=== PATIENT | male | born 1965 | race African-American/Black ===

== ENCOUNTER 2018-09-20 12:41 | Emergency (ER) | payer OTHER ==
[2018-09-20 12:45] VITALS: TEMP 98.6; BMI 31.5
[2018-09-20] MEDS ORDERED: SODIUM CHLORIDE 0.9% 500 ML INFUS.BAG IV ONE (12:54)
[2018-09-20] MEDS ORDERED: SUCRALFATE 1 GM TABLET (FP) PO ONE (12:54)
[2018-09-20] MEDS ORDERED: MAG HYDROX/AL HYDROX/SIMETH 30 ML UNIT-DOSE CUP PO ONE (12:54)
[2018-09-20] MEDS ORDERED: FAMOTIDINE 20 MG/50 ML IVPB 20 MG/50 ML MG IVPB ONE ×2 (12:54→13:12)
--- NOTE | 2018-09-20 13:01 | PDOC ---
History of Present Illness - General Chief Complaint: Chest Pain Stated Complaint: CHEST DISCOMFORT Time Seen by Provider: 09/20/18 12:48 - History of Present Illness Initial Comments: 09/20/18 12:55 53 yo M with h/o HIV, HTN, HLD, IDDM, DVT, PE (on Eliquis), Unstable Angina who p/w epigastric pain. Patient reports 3 days of non radiating, stable, persistent , substernal/epigastric chest pain beginning 09-19-17 evening. Pain worse with supine positioning. Pain not improved with OTC Ibuprofen. Reports h/o similar pain. Pain now 5/10. Decreased severity. Pt. with episode of non bilious, blood tinged emesis this AM x 3 , which prompted ED encounter. Normal bowel habits, and PO intake. Denies postprandial pain. Not typical of PE pain experienced in pain. CD4 coutn 376 (07/2018). Adherent to HIV medication. Patient denies N/V, F,C, CP, SOB, urinary complaints, abdominal pain, diarrhea, constipation, lightheadedness, weakness, sensory changes. PMHx: as noted above. Denies SD, stent placement, CABG, abnml stress testing. Denies h/o endoscopy, chronic NSAID use. ROS: as noted SHx: Denies Etoh, IVDA, tobacco use. Allergies: Bactrim Past History - Past Medical History Allergies/Adverse Reactions: Allergies Allergy/AdvReac Type Severity Reaction Status Date / Time trimethoprim [From Bactrim] AdvReac Intermediate Verified 09/20/18 12:45 sulfamethoxazole AdvReac Verified 09/20/18 12:45 [From Bactrim] Home Medications: Ambulatory Orders Insulin (Levemir) [Levemir Vial] 30 unit SQ HS 02/02/16 Apixaban [Eliquis -] 10 mg PO BID #0 tablet 03/29/16 Insulin Sliding Scale [Novolog Vial Sliding Scale -] 1 vial SQ ACHS #0 units Atorvastatin Ca [Lipitor] 10 mg PO HS 09/20/18 Insulin (Levemir) [Levemir Vial] 25 units SQ AM 09/20/18 Losartan Potassium [Cozaar -] 50 mg PO DAILY 09/20/18 Metformin HCl [Metformin HCl ER] 1,000 mg PO DAILY 09/20/18 COPD: No Diabetes: Yes HTN: Yes Hypercholesterolemia: Yes - Immunization History Immunization Up to Date: (flu ) - Suicide/Smoking/Psychosocial Hx Smoking History: Never smoked Have you smoked in the past 12 months: No Hx Alcohol Use: No Drug/Substance Use Hx: No Substance Use Type: None Review of Systems - Review of Systems Comments:: 09/20/18 13:04 GENERAL/CONSTITUTIONAL: No fever or chills. No weakness. HEAD, EYES, EARS, NOSE AND THROAT: No change in vision. No ear pain or discharge. No sore throat. CARDIOVASCULAR: + chest pain. No shortness of breath RESPIRATORY: No cough, wheezing, or hemoptysis. GASTROINTESTINAL: +nausea, vomiting. No diarrhea or constipation. GENITOURINARY: No dysuria, frequency, or change in urination. MUSCULOSKELETAL: No joint or muscle swelling or pain. No neck or back pain. SKIN: No rash NEUROLOGIC: No headache, vertigo, loss of consciousness, or change in strength/ sensation. ENDOCRINE: No increased thirst. No abnormal weight change HEMATOLOGIC/LYMPHATIC: No anemia, easy bleeding, or history of blood clots. ALLERGIC/IMMUNOLOGIC: No hives or skin allergy. *Physical Exam - Vital Signs Last Vital Signs Temp Pulse Resp BP Pulse Ox 98.6 F 109 H 20 145/103 H 97 09/20/18 12:43 09/20/18 12:43 09/20/18 12:43 09/20/18 12:43 09/20/18 12:43 - Physical Exam Comments: 09/20/18 13:05 GENERAL: Awake, alert, and fully oriented, in no acute distress HEAD: No signs of trauma, normocephalic, atraumatic EYES: PERRLA, EOMI, sclera anicteric, conjunctiva clear ENT: Hearing grossly normal, nares patent, oropharynx clear without exudates. Moist mucosa NECK: Normal ROM, supple, no lymphadenopathy, JVD, or masses LUNGS: No distress, speaks full sentences, clear to auscultation bilaterally HEART: Regular rate and rhythm, normal S1 and S2, no murmurs, rubs or gallops, peripheral pulses normal and equal bilaterally. ABDOMEN: Protuberant abdomen. Soft, nontender, normoactive bowel sounds. No guarding, no rebound. No masses. Neg CVA ttp. EXTREMITIES : Normal inspection, Normal range of motion, no edema. No clubbing or cyanosis. SKIN: Warm, Dry, normal turgor, no rashes or lesions noted Moderate Sedation - Procedure Monitoring Vital Signs: Procedure Monitoring Vital Signs Temperature 98.6 F 09/20/18 12:43 Pulse Rate 109 H 09/20/18 12:43 Respiratory Rate 20 09/20/18 12:43 Blood Pressure 145/103 H 09/20/18 12:43 O2 Sat by Pulse Oximetry (%) 97 09/20/18 12:43 ED Treatment Course - LABORATORY CBC & Chemistry Diagram: 09/20/18 13:10 09/20/18 13:10 - RADIOLOGY Radiology Studies Ordered: Category Date Time Status CXRPORT [CHEST X-RAY PORTABLE*] [RAD] Stat Radiology 09/20/18 12:54 Ordered Medical Decision Making - Medical Decision Making 09/20/18 12:59 53 yo M with h/o HIV, HTN, HLD, IDDM, DVT, PE (on Eliquis), Unstable Angina who p/w chest pain. Patient reports 3 days of non radiating, stable, persistent, substernal/epigastric pain. HR 109, vitals otherwise wnl, AF, A&OX3. ACS/SD r/ o. R/o PNA. Will consider diabetic gastroparesis, kisha shon, pancreatitis, PUD, perforated viscous, biliary dz. esophagitis, gastritis, colitis, gastroenteritis. Low suspicion pericarditis, pleural effusion. Moderate risk PNA Weils criteria. ED Course: CBC,CMP,CARDIAC WV,LIPASE EKG, CXR MALOOX, NS, FAMOTIDINE, CARAFATE EKG: NSR with absent NIKUNJ, STD, TWI. Abnml R w wave progression, with absent Q waves. Nml interval duration and axis. 09/20/18 14:39 Losartan 50 mg 09/20/18 15:30 CXR: No acute pathology CBC,CMP: Unremarkable Pain improved Stable for d/c with return precautions Advised to f/u with PMD, GI *DC/Admit/Observation/Transfer Diagnosis at time of Disposition: Epigastric abdominal pain - Discharge Dispostion Disposition: HOME Condition at time of disposition: Stable Decision to Admit order: No - Referrals Referrals: Fede Lomeli MD [Primary Care Provider] - - Patient Instructions Printed Discharge Instructions: DI for Epigastric Pain Additional Instructions: Please return to the emergency department with any new or worsening symptoms or concerns. Please follow up with your primary care physician within 72 hours. Please follow up with gastroenterology within one week. - Post Discharge Activity - Attestations Physician Attestion: 09/20/18 15:32 I attest to the information provided in this note.
[2018-09-20] MEDS ORDERED: SUCRALFATE 1 GM TABLET (FP) ONE (13:12)
[2018-09-20] MEDS ORDERED: MAG HYDROX/AL HYDROX/SIMETH 30 ML UNIT-DOSE CUP ONE (13:12)
[2018-09-20 13:39] LABS: BASO % 0.3 % (0-2.0); EOS % 0.3 % (0-4.5); HEMATOCRIT 41.6 % (35.4-49); HEMOGLOBIN 14.6 GM/dL (11.7-16.9); LYMPH % 26.5 % (8-40); MCH 30.8 pg (25.7-33.7); MCHC 35.2 g/dl (32.0-35.9); MEAN CELL VOLUME 87.7 fl (80-96); MEAN PLT VOLUME 8.3 fl (7.5-11.1); MONO % 8.1 % (3.8-10.2); NEUT % 64.8 % (42.8-82.8); PLATELET COUNT 236 K/MM3 (134-434); RBC 4.74 M/mm3 (4.00-5.60); RDW 13.9 % (11.9-15.9); WHITE BLOOD COUNT 9.3 K/mm3 (4.0-10.0)
[2018-09-20 13:53] LABS: INR 1.07 (0.83-1.09); PROTHROMBIN TIME (PATIENT) 12.6 SEC (9.7-13.0)
--- NOTE | 2018-09-20 13:56 | PDOC ---
Attending Attestation - HPI HPI: 09/20/18 14:06 The patient is a 53 year old female, with a significant past medical history of HIV, HTN, HLD, IDDM, DVT, PE (on Eliquis), Unstable Angina, who presents to the emergency department with, 3 days of epigastric pain. She describes her pain as nonradiating localized to the epigastric area worsening when lying supine. She endorses 3-4 episodes of nonbilious, blood tinged emesis prompting her visit to the ER. She denies recent fevers, chills, headache or dizziness. She denies recent diarrhea or constipation. She denies recent dysuria, frequency, urgency or hematuria. She denies recent chest pain or shortness of breath. Allergies: Bactrim. Primary Care Physician: Dr. Lomeli <Citlalli Wade - Last Filed: 09/20/18 14:06> - Resident Resident Name: Wesley Daniel - ED Attending Attestation I have performed the following: I have examined & evaluated the patient, The case was reviewed & discussed with the resident, I agree w/resident's findings & plan, Exceptions are as noted - Physicial Exam PE: GENERAL: Awake, alert, and fully oriented, in no acute distress HEAD: No signs of trauma EYES: PERRLA, EOMI, sclera anicteric, conjunctiva clear ENT: Auricles normal inspection, hearing grossly normal, nares patent, oropharynx clear without exudates. Moist mucosa NECK: Normal ROM, supple, no lymphadenopathy, JVD, or masses LUNGS: Breath sounds equal, clear to auscultation bilaterally. No wheezes, and no crackles HEART: Regular rate and rhythm, normal S1 and S2, no murmurs, rubs or gallops ABDOMEN: Soft, nontender, normoactive bowel sounds. No guarding, no rebound. No masses EXTREMITIES: Normal range of motion, no edema. No clubbing or cyanosis. No cords, erythema, or tenderness NEUROLOGICAL: Cranial nerves II through XII grossly intact. Normal speech, normal gait. Motor and sensation intact SKIN: Warm, Dry, normal turgor, no rashes or lesions noted. - Medical Decision Making 09/20/18 14:08 Pt with epigastric pain radiating back and forth from LUQ to RUQ. No reproducible tenderness at present. This is atypical for ACS, and the symptoms started 2 days ago, so at this point, should see a positive result on the troponin. DDx also includes GERD/PUD. Will give GI cocktail and reassess. <Pita Mercado - Last Filed: 09/20/18 14:10> Attestations - Attestations 09/20/18 14:06 Documentation prepared by Citlalli Wade, acting as medical dir for Pita Mercado MD. <Citlalli Wade - Last Filed: 09/20/18 14:06>
[2018-09-20] MEDS ORDERED: ONDANSETRON 4 MG/2 ML VIAL IVPB ONE (14:04)
[2018-09-20] MEDS ORDERED: ONDANSETRON 4 MG/2 ML VIAL ONE (14:15)
[2018-09-20 14:18] LABS: ALBUMIN 3.9 g/dl (3.4-5.0); ALK PHOS 89 U/L (45-117); ANION GAP 9 MMOL/L (8-16); BILIRUBIN,TOTAL 0.6 mg/dL (0.2-1); BLOOD UREA NITROGEN 11 mg/dL (7-18); CALCIUM 9.6 mg/dL (8.5-10.1); CHLORIDE 101 mmol/L (98-107); CO2 25 mmol/L (21-32); CREATININE 1.4 mg/dL (0.55-1.3); GLUCOSE,RANDOM 199 mg/dL (74-106); LIPASE 89 U/L (73-393); SGOT/AST 18 U/L (15-37); SGPT/ALT 51 U/L (13-61); SODIUM 135 mmol/L (136-145); TOT PROT 8.3 g/dl (6.4-8.2)
[2018-09-20] MEDS ORDERED: LOSARTAN POTASSIUM 50 MG TABLET (FP) PO ONE (14:38)
[2018-09-20 14:39] VITALS: BP 165/99; PULSE 83
--- NOTE | 2018-09-20 16:20 | EKG ---
Test Reason : Blood Pressure : / mmHG Vent. Rate : 091 BPM Atrial Rate : 091 BPM P-R Int : 170 ms QRS Dur : 082 ms QT Int : 328 ms P-R-T Axes : 038 032 014 degrees QTc Int : 403 ms NORMAL SINUS RHYTHM NORMAL ECG WHEN COMPARED WITH ECG OF 26-MAR-2016 08:41, T WAVE INVERSION LESS EVIDENT IN INFERIOR LEADS T WAVE INVERSION NO LONGER EVIDENT IN ANTERIOR LEADS Confirmed by MD MELVINA, BRITTANY ([id number]) on 09/20/2018 4:20:01 PM Referred By: Confirmed By:BRITTANY HEIN MD
== END 2018-09-20 15:40 | disposition home or self-care (01) ==
LOC: JER 12:41
PROC: 3E033GC Introduction of Other Therapeutic Substance into Peripheral Vein, Percutaneous Approach (ICD-10-PCS; principal; 2018-09-20)
PROC: 3E0337Z Introduction of Electrolytic and Water Balance Substance into Peripheral Vein, Percutaneous Approach (ICD-10-PCS; 2018-09-20)
DX: R10.13 Epigastric pain (principal); I10 Essential (primary) hypertension; Z21 Asymptomatic human immunodeficiency virus [HIV] infection status; E78.5 Hyperlipidemia, unspecified; Z86.718 Personal history of other venous thrombosis and embolism; Z79.01 Long term (current) use of anticoagulants
CPT/HCPCS: 36415; 71045-TC-FY; 80053; 82550; 82553; 83690; 84484; 85025; 85610; 93005; 93010; 99283-25

== ENCOUNTER 2019-08-01 17:36 | Inpatient (IN) | payer OTHER ==
[2019-08-01 18:49] LABS: BASO % 0.9 % (0-2.0); EOS % 0.3 % (0-4.5); HEMATOCRIT 39.9 % (35.4-49); HEMOGLOBIN 13.5 GM/dL (11.7-16.9); LYMPH % 14.4 % (8-40); MCH 30.7 pg (25.7-33.7); MCHC 33.7 g/dl (32.0-35.9); MEAN CELL VOLUME 91.2 fl (80-96); MEAN PLT VOLUME 8.7 fl (7.5-11.1); MONO % 7.5 % (3.8-10.2); NEUT % 76.9 % (42.8-82.8); PLATELET COUNT 186 K/MM3 (134-434); RBC 4.38 M/mm3 (4.00-5.60); RDW 13.6 % (11.9-15.9)
--- NOTE | 2019-08-01 19:06 | PDOC ---
History of Present Illness - General Chief Complaint: Edema Stated Complaint: CHIN SWOLLEN Time Seen by Provider: 08/01/19 17:46 History Source: Patient, Old Records Exam Limitations: No Limitations - History of Present Illness Initial Comments: 08/01/19 19:03 HISTORY OF PRESENT ILLNESS: This is a 54-year-old male with past medical history of IDDM, HIV (CD4 greater than 400, viral load undetectable 3 months ago ), DVT, pulmonary embolism on Eliquis, unstable angina, hypertension, hyperlipidemia who presents to the emergency department for evaluation of warmth and swelling to the underside of his chin. Patient reports the swelling started 3 days ago after he cut himself shaving and has progressively gotten worse. He denies any difficulty breathing, drooling, difficulty swallowing or vocal changes. He reports having chills last night but did not check his temperature. He denies headaches, blurry vision, neck stiffness, shortness of breath. Infectious disease: Dr. Walter No recent travel or sick contacts. PAST MEDICAL HISTORY: Denies past medical history SURGICAL HISTORY: Denies ALLERGIES: Bactrim REVIEW OF SYSTEMS General/Constitutional: Denies fever or chills. Denies weakness, weight change. HEENT: See HPI Cardiovascular: Denies chest pain or shortness of breath. Respiratory: Denies cough, wheezing, or hemoptysis. Gastrointestinal: Denies nausea, vomiting, diarrhea or constipation. Denies rectal bleeding. Genitourinary: Denies dysuria, frequency, or change in urination. Musculoskeletal: Denies joint or muscle swelling or pain. Denies neck or back pain. Skin and breasts: Denies rash or easy bruising. Neurologic: Denies headache, vertigo, loss of consciousness, or loss of sensation. Psychiatric: Denies depression or anxiety. Endocrine: Denies increased thirst. Denies abnormal weight change. Hematologic/Lymphatic: Denies anemia, easy bleeding, or history of blood clots. Allergic/Immunologic: Denies hives or skin allergy. Denies latex allergy. PHYSICAL EXAM General Appearance: Well-appearing, appropriately dressed. No apparent distress , no intoxication. HEENT: EOMI, PERRLA, normal ENT inspection, normal voice, TMs normal, pharynx normal. No conjunctival pallor. No photophobia, scleral icterus. Swelling present to the midline submandibular area crossing the midline. No tenderness to palpation of the sublingual region. Mild sublingual swelling present. Chin and anterior neck erythematous and warm to the touch. Neck: Supple. Trachea midline. No tenderness, rigidity, carotid bruit, stridor , lymphadenopathy, or thyromegaly. Respiratory/Chest: Lungs CTAB. No shortness of breath, chest tenderness, respiratory distress, accessory muscle use. No crackles, rales, rhonchi, stridor , wheezing, dullness Cardiovascular: RRR. S1, S2. No JVD, murmur, bradycardia, tachycardia. Vascular Pulses: Dorsalis-Pedis (R): 2+, Dorsalis-Pedis (L): 2+ this is a 54- year-old male with past medical history of Neurologic: traffic supervisor II-XII intact. Fully oriented, alert. Appropriate mood/affect. Motor strength 5/5. No appreciable EOM palsy, facial droop or sensory deficit. 08/01/19 19:07 08/01/19 22:15 Past History - Past Medical History Allergies/Adverse Reactions: Allergies Allergy/AdvReac Type Severity Reaction Status Date / Time trimethoprim [From Bactrim] AdvReac Intermediate Verified 08/01/19 17:41 sulfamethoxazole AdvReac Verified 08/01/19 17:41 [From Bactrim] Home Medications: Ambulatory Orders Apixaban [Eliquis -] 10 mg PO BID #0 tablet 03/29/16 Insulin (Levemir) [Levemir Vial] 25 units SQ HS 09/20/18 Losartan Potassium [Cozaar -] 50 mg PO DAILY 09/20/18 metFORMIN HCL [Metformin HCl ER] 1,000 mg PO DAILY 09/20/18 Abacavir/Dolutegravir/Lamivudi [Triumeq Tablet] 1 each PO DAILY 11/30/18 Atorvastatin Ca [Lipitor] 10 mg PO HS 08/02/19 Anemia: No Asthma: No Cancer: No Cardiac Disorders: No CVA: No COPD: No CHF: No Dementia: No Diabetes: Yes GI Disorders: No Disorders: No HTN: Yes Hypercholesterolemia: Yes Liver Disease: No Seizures: No Thyroid Disease: No - Immunization History Immunization Up to Date: (flu ) - Psycho Social/Smoking Cessation Hx Smoking History: Never smoked Have you smoked in the past 12 months: No Hx Alcohol Use: No Drug/Substance Use Hx: No Substance Use Type: None *Physical Exam - Vital Signs Last Vital Signs Temp Pulse Resp BP Pulse Ox 98.5 F 107 H 18 126/80 97 08/01/19 17:41 08/01/19 17:41 08/01/19 17:41 08/01/19 17:41 08/01/19 17:41 ED Treatment Course - LABORATORY CBC & Chemistry Diagram: 08/04/19 05:30 08/04/19 05:30 - ADDITIONAL ORDERS Additional order review: 08/01/19 18:40 RBC 4.38 MCV 91.2 MCHC 33.7 RDW 13.6 MPV 8.7 Neutrophils % 76.9 Lymphocytes % 14.4 D Monocytes % 7.5 Eosinophils % 0.3 Basophils % 0.9 - RADIOLOGY Radiology Studies Ordered: Category Date Time Status SOFT TISSUE NECK CT WITH CONTR [CT] Stat CT Scan 08/01/19 18:13 Ordered Medical Decision Making - Medical Decision Making 08/01/19 19:08 A/P: 54-year-old male with anterior submandibular swelling with surrounding cellulitis Differential diagnosis includes but is not limited to Tra's angina, cellulitis, abscess, sialolithiasis with abscess, myositis CBC, CMP, coagulation profile, urinalysis, urine culture, blood cultures CT of the neck with IV contrast 08/01/19 20:37 Patient noted to have elevated blood sugar 476. 8 units regular insulin subcu ordered. Normal saline 1 L IV bolus ordered Creatinine 1.9 with a GFR 45. I will pre-hydrate the patient's prior to IV contrast and continue to hydrate after he receives this study. Risks and benefits of receiving IV contrast versus imaging that does not visualize any abscess or deep space infections have been discussed with the patient was verbalized understanding. Patient is in agreement with receiving IV contrast in the setting of acute renal insufficiency. 08/01/19 22:07 CT scan as read by imaging on-call: Moderate edema in the subcutaneous tissues and platysma bilaterally in the submandibular neck extending to the level of the thyroid cartilage. The submandibular glands demonstrate mild her right heterogeneous enhancement. Cannot exclude sialadenitis. No evidence for abscess. No submandibular calculi. Parotid glands and thyroid gland grossly unremarkable. Larynx, epiglottis and prevertebral soft tissues are within normal limits. No cervical adenopathy. Polyp or cyst left maxillary antrum. Surgical changes in the right orbit with possible dislocated lens. As patient is retroviral as well as an insulin-dependent diabetic I will contact the hospitalist for admission for IV antibiotics. 08/01/19 22:39 Case was discussed with Dr. Tena who is covering for Dr. Lomeli at this time. She request case discussed with ID prior to excepting for admission. Dr. Walter the patient's infectious disease specialist has been paged. 08/01/19 23:00 Case has been discussed with Dr. Ramirez of infectious disease. She recommends Vanco and Zosyn for treatment. I will contact Dr. Tena for admission. 08/01/19 23:13 Dr. Anders accepts patient for admission under Dr. Lomeli. Formal consult for Dr. Walter placed. Discharge - Discharge Information Problems reviewed: Yes Clinical Impression/Diagnosis: Hyperglycemia without ketosis, Ludwigs angina Cellulitis Qualifiers: Site of cellulitis: neck Qualified Code(s): L03.221 - Cellulitis of neck Chronic kidney disease Qualifiers: Chronic kidney disease stage: unspecified stage Qualified Code(s): N18.9 - Chronic kidney disease, unspecified Condition: Fair - Admission Yes - Follow up/Referral - Patient Discharge Instructions - Post Discharge Activity
[2019-08-01 19:09] LABS: INR 1.13 (0.83-1.09); PROTHROMBIN TIME (PATIENT) 13.4 SEC (9.7-13.0)
[2019-08-01 19:46] LABS: ALBUMIN 3.7 g/dl (3.4-5.0); BILIRUBIN,TOTAL 0.4 mg/dL (0.2-1); BLOOD UREA NITROGEN 15.7 mg/dL (7-18); CALCIUM 8.4 mg/dL (8.5-10.1); CREATININE 1.9 mg/dL (0.55-1.3); POTASSIUM 4.2 mmol/L (3.5-5.1); TOT PROT 7.3 g/dl (6.4-8.2)
[2019-08-01] MEDS ORDERED: SODIUM CHLORIDE 1,000 ML IV STA ×2 (19:51→21:48)
[2019-08-01] MEDS ORDERED: INSULIN REGULAR HUMAN 100 UNITS/ML *VIAL SQ ONE (19:52)
[2019-08-01 22:09] LABS: PH,URINE 5.5 (5.0-8.0); URINE APPEARANCE CLEAR; URINE BILIRUBIN NEGATIVE (NEGATIVE); URINE COLOR YELLOW; URINE GLUCOSE (UA) 3+ (NEGATIVE); URINE KETONE NEGATIVE (NEGATIVE); URINE LEUK ESTERASE NEGATIVE (NEGATIVE); URINE NITRITE NEGATIVE (NEGATIVE); URINE PROTEIN NEGATIVE (NEGATIVE); URINE UROBILINOGEN 0.2 mg/dL (0.2-1.0)
[2019-08-01] MEDS ORDERED: PIPERACILLIN/TAZOB 4.5 GM 4.5 GM in DEXTROSE 5%-WATER 100 ML IVPB ONE (23:01)
[2019-08-01] MEDS ORDERED: PIPERACILLIN/TAZOB 4.5 GM 4.5 GM/100 ML BAG IVPB ONE (23:51)
[2019-08-02] MEDS: SODIUM CHLORIDE 1,000 ML IV SCH ×2 (00:20→21:42)
[2019-08-02] MEDS ORDERED: ACETAMINOPHEN 325 MG TABLET (FP) PO PRN (02:02)
[2019-08-02] MEDS ORDERED: ACETAMINOPHEN 325 MG TABLET (FP) ONE (02:05)
[2019-08-02] MEDS ORDERED: ACETAMINOPHEN 1000 MG/100 ML VIAL (NON FORMULARY) IVPB ONE (07:48)
[2019-08-02] MEDS ORDERED: SODIUM CHLORIDE 0.9% 1000 ML INFUS.BAG IV ONE (07:48)
[2019-08-02] MEDS ORDERED: PIPERACILLIN/TAZOB 4.5 GM 4.5 GM in DEXTROSE 5%-WATER 100 ML IVPB ONE (07:51)
[2019-08-02] MEDS ORDERED: DEXAMETHASONE SOD PHOSPHATE 10 MG/1 ML VIAL ONE (07:58)
[2019-08-02] MEDS ORDERED: RAPID SEQUENCE INTUBATION KIT NR ONE ×2 (07:59→08:40)
[2019-08-02] MEDS ORDERED: LIDOCAINE HCL 1%, 10 MG/ML (20ML VIAL) ONE (08:07)
[2019-08-02] MEDS ORDERED: KETAMINE HCL 200 MG/20 ML VIAL ONE (08:11)
[2019-08-02] MEDS ORDERED: GLYCOPYRROLATE 1 MG/5 ML VIAL IM ONE (08:17)
[2019-08-02] MEDS ORDERED: LIDOCAINE 1%/EPI 1:100000 (20 ML MULTI DOSE VIAL) ONE (08:17)
[2019-08-02] MEDS ORDERED: EPINEPHrine 1:1,000 - 30 MG/30 ML VIAL IM ONE (08:17)
[2019-08-02] MEDS ORDERED: GLYCOPYRROLATE 0.2 MG/1 ML VIAL IM ONE (08:30)
[2019-08-02] MEDS ORDERED: PROPOFOL 1,000,000 MCG/100 ML VIAL ONE ×2 (08:41→11:10)
--- NOTE | 2019-08-02 08:42 | PDOC ---
*Physical Exam - Vital Signs Last Vital Signs Temp Pulse Resp BP Pulse Ox 103.8 F H 125 H 18 122/73 95 08/02/19 07:46 08/02/19 07:46 08/02/19 07:46 08/02/19 07:46 08/02/19 07:46 ED Treatment Course - LABORATORY CBC & Chemistry Diagram: 08/01/19 18:40 08/01/19 18:40 - ADDITIONAL ORDERS Additional order review: Laboratory Results 08/01/19 08/01/19 21:47 21:45 POC Glucometer 309 Urine Color Yellow Urine Appearance Clear Urine pH 5.5 Ur Specific [place] 1.038 H Urine Protein Negative Urine Glucose (UA) 3+ H Urine Ketones Negative Urine Blood Negative Urine Nitrite Negative Urine Bilirubin Negative Urine Urobilinogen 0.2 Ur Leukocyte Esterase Negative 08/01/19 08/01/19 21:47 18:40 RBC 4.38 MCV 91.2 MCHC 33.7 RDW 13.6 MPV 8.7 Neutrophils % 76.9 Lymphocytes % 14.4 D Monocytes % 7.5 Eosinophils % 0.3 Basophils % 0.9 POC Glucometer 309 - Medications Given in the ED: ED Medications Discontinued Medications Generic Name Dose Route Start Last Admin Trade Name Freq PRN Reason Stop Dose Admin Diphenhydramine HCl 25 mg 08/02/19 00:10 08/02/19 00:20 Benadryl Injection - IVPUSH 08/02/19 00:11 25 mg ONCE ONE Administration Sodium Chloride 1,000 mls @ 1,000 mls/hr 08/01/19 19:51 08/01/19 20:02 Normal Saline - IV 08/01/19 20:50 1,000 mls/hr ASDIR STA Administration Sodium Chloride 1,000 mls @ 1,000 mls/hr 08/01/19 21:48 08/01/19 21:50 Normal Saline - IV 08/01/19 22:47 1,000 mls/hr ASDIR STA Administration Piperacillin Sod/Tazobactam 100 mls @ 200 mls/hr 08/01/19 23:01 08/01/19 23: 20 Sod 4.5 gm/ Dextrose IVPB 08/01/19 23:30 200 mls/hr ONCE ONE Administration Protocol Insulin Human Regular 8 units 08/01/19 19:52 08/01/19 20:02 Novolin R Vial *For Ivpush Or Iv Drip Only* SQ 08/01/19 19:53 8 units ONCE ONE Administration Medical Decision Making - Medical Decision Making 08/02/19 08:40 Patient admitted last night for likely submandibular swelling/infection given HIV status and diabetes. Patient was started on Zosyn hemodynamically stable at time of signout from KILN PACKER to accepting MD At approximately 7:30 AM I was informed that the patient had spiked a fever and was asked to place an order for IV Tylenol I reviewed the patient's vital signs then proceeded to reevaluate the patient at bedside Upon my reevaluation of the patient I noted a significant change in the patient' s appearance the infection submandibularly had spread around to the patient's face he had developed trismus there was no stridor his lungs were clear he was able to speak full sentences but my concern was for a rapidly progressing Ludewig's angina Anesthesia was immediately consulted and asked to come to bedside for possible awake fiberoptic intubation Patient intubated by anesthesia successfully ICU consultation placed vancomycin added to antibiotic regimen Patient to be admitted to ICU. Discharge - Discharge Information Problems reviewed: Yes Clinical Impression/Diagnosis: Hyperglycemia without ketosis, Ludwigs angina Cellulitis Qualifiers: Site of cellulitis: neck Qualified Code(s): L03.221 - Cellulitis of neck Chronic kidney disease Qualifiers: Chronic kidney disease stage: unspecified stage Qualified Code(s): N18.9 - Chronic kidney disease, unspecified Condition: Fair - Admission Yes - Follow up/Referral - Patient Discharge Instructions - Post Discharge Activity
[2019-08-02] MEDS: PROPOFOL 1,000,000 MCG/100 ML VIAL IVPB SCH ×3 (08:50→19:45)
[2019-08-02] MEDS ORDERED: PIPERACILLIN/TAZOB 3.375 GM 3.375 GM/50 ML BAG IVPB ONE (08:51)
[2019-08-02] MEDS ORDERED: ACETAMINOPHEN INJECTION 100 ML IVPB ONE (08:51)
--- NOTE | 2019-08-02 08:53 | PDOC ---
*Physical Exam - Vital Signs Last Vital Signs Temp Pulse Resp BP Pulse Ox 103.8 F H 125 H 18 122/73 95 08/02/19 07:46 08/02/19 07:46 08/02/19 07:46 08/02/19 07:46 08/02/19 07:46 ED Treatment Course - LABORATORY CBC & Chemistry Diagram: 08/03/19 06:50 08/03/19 06:50 - ADDITIONAL ORDERS Additional order review: Laboratory Results 08/01/19 08/01/19 21:47 21:45 POC Glucometer 309 Urine Color Yellow Urine Appearance Clear Urine pH 5.5 Ur Specific [place] 1.038 H Urine Protein Negative Urine Glucose (UA) 3+ H Urine Ketones Negative Urine Blood Negative Urine Nitrite Negative Urine Bilirubin Negative Urine Urobilinogen 0.2 Ur Leukocyte Esterase Negative 08/01/19 08/01/19 21:47 18:40 RBC 4.38 MCV 91.2 MCHC 33.7 RDW 13.6 MPV 8.7 Neutrophils % 76.9 Lymphocytes % 14.4 D Monocytes % 7.5 Eosinophils % 0.3 Basophils % 0.9 POC Glucometer 309 - Medications Given in the ED: ED Medications Discontinued Medications Generic Name Dose Route Start Last Admin Trade Name Freq PRN Reason Stop Dose Admin Diphenhydramine HCl 25 mg 08/02/19 00:10 08/02/19 00:20 Benadryl Injection - IVPUSH 08/02/19 00:11 25 mg ONCE ONE Administration Sodium Chloride 1,000 mls @ 1,000 mls/hr 08/01/19 19:51 08/01/19 20:02 Normal Saline - IV 08/01/19 20:50 1,000 mls/hr ASDIR STA Administration Sodium Chloride 1,000 mls @ 1,000 mls/hr 08/01/19 21:48 08/01/19 21:50 Normal Saline - IV 08/01/19 22:47 1,000 mls/hr ASDIR STA Administration Piperacillin Sod/Tazobactam 100 mls @ 200 mls/hr 08/01/19 23:01 08/01/19 23: 20 Sod 4.5 gm/ Dextrose IVPB 08/01/19 23:30 200 mls/hr ONCE ONE Administration Protocol Insulin Human Regular 8 units 08/01/19 19:52 08/01/19 20:02 Novolin R Vial *For Ivpush Or Iv Drip Only* SQ 08/01/19 19:53 8 units ONCE ONE Administration Medical Decision Making - Medical Decision Making 08/02/19 08:45 RN notified attendings that pt has had change in the swelling of his neck. Patient immediately moved to resuscitation room but was maintaining airway at the time. Anesthesia, Dr. Aguero, notified with concern for impending airway compromise. ED attending, anesthesia attendings, and residents at bedside, RN giving medications. Atomized lidocaine used and an awake intubation was completed with ketamine and propofol. Propofol ggt ordered. Pt with stable vitals on ventilator. Portable CXR ordered. ICU resident notified. Bed switched to ICU. Discharge - Discharge Information Problems reviewed: Yes Clinical Impression/Diagnosis: Hyperglycemia without ketosis, Ludwigs angina Cellulitis Qualifiers: Site of cellulitis: neck Qualified Code(s): L03.221 - Cellulitis of neck Chronic kidney disease Qualifiers: Chronic kidney disease stage: unspecified stage Qualified Code(s): N18.9 - Chronic kidney disease, unspecified Condition: Fair - Follow up/Referral - Patient Discharge Instructions - Post Discharge Activity
[2019-08-02] MEDS ORDERED: VANCOMYCIN 1 GM in D5W (PRE-DOCKED) 1,000 MG/250 ML IVPB ONE (09:18)
[2019-08-02] MEDS ORDERED: VANCOMYCIN 1 GRAM (PRE-DOCKED) 1,000 MG/250 ML BAG IVPB ONE (09:20)
[2019-08-02] MEDS ORDERED: GLYCOPYRROLATE 1 MG/5 ML VIAL IVPB ONE (09:42)
--- NOTE | 2019-08-02 09:43 | PN ---
Progress Note (short form) - Note Progress Note: Called by ER MD to evaluate patient with severe neck and héctor mandibular airway edema for prophylactic intubation. Pt NPO. Pt examined at bedside. Significant swelling, unable to open mouth due to swelling. No known prior parenchymal lung disease and no known prior CAD history. Eliquis (for h/o PE) d/c'd greater than 48h ago. BP stable, HR sinus tach 130s to 140s. Sats 100% on 100% NRB. Per pt and ER staff significant clinical deterioration in last 1 hour. Discussed awake intubation, pt expresses verbal understanding and consent. Proceed to topicalize airway with atomized 4% lidocaine followed by transtracheal block (22g needle) with 3ml 1% lidocaine. Pt tolerates very well. Glycopyrrolate 0.4mg, 20mg propofol and 100mg ketamine given. Pt cooperates with Atraumatic [place] attempt x 1. 7.0 ETT passed through vocal cords under direct visualization, ETCO2 confirmed, equal and bilateral breath sounds auscultated. There was evidence of edema and resulting anterior displacement of glottis, but there was no resistance appreciated upon intubation. Post intubation VS stable and unchanged from prior.
--- NOTE | 2019-08-02 10:01 | EKG ---
Test Reason : Blood Pressure : / mmHG Vent. Rate : 097 BPM Atrial Rate : 097 BPM P-R Int : 166 ms QRS Dur : 074 ms QT Int : 300 ms P-R-T Axes : 047 052 027 degrees QTc Int : 381 ms NORMAL SINUS RHYTHM MODERATE VOLTAGE CRITERIA FOR LVH, MAY BE NORMAL VARIANT BORDERLINE ECG WHEN COMPARED WITH ECG OF 20-SEP-2018 12:56, NO SIGNIFICANT CHANGE WAS FOUND Confirmed by KASSANDRA SAHNI MD ([id number]) on 08/02/2019 10:01:35 AM Referred By: Confirmed By:KASSANDRA SAHNI MD
[2019-08-02 10:18] LABS: BASO % 0.1 % (0-2.0); HEMATOCRIT 37.3 % (35.4-49); HEMOGLOBIN 12.4 GM/dL (11.7-16.9); LYMPH % 4.5 % (8-40); MCH 29.9 pg (25.7-33.7); MCHC 33.3 g/dl (32.0-35.9); MEAN CELL VOLUME 89.9 fl (80-96); MEAN PLT VOLUME 8.8 fl (7.5-11.1); MONO % 6.9 % (3.8-10.2); NEUT % 88.5 % (42.8-82.8); PLATELET COUNT 161 K/MM3 (134-434); RBC 4.15 M/mm3 (4.00-5.60); RDW 13.6 % (11.9-15.9); WHITE BLOOD COUNT 11.1 K/mm3 (4.0-10.0)
[2019-08-02] MEDS ORDERED: MIDAZOLAM HCL 2 MG/2 ML SINGLE DOSE VIAL IVPUSH ONE (10:20)
[2019-08-02] MEDS ORDERED: LACTATED RINGERS SOLUTION 1000 ML INFUS.BAG IV ONE (10:21)
[2019-08-02] MEDS ORDERED: MIDAZOLAM HCL 2 MG/2 ML SINGLE DOSE VIAL ONE (10:22)
[2019-08-02] MEDS ORDERED: MIDAZOLAM HCL 2 MG/2 ML SINGLE DOSE VIAL IVPUSH PRN (10:27)
--- NOTE | 2019-08-02 10:49 | PN ---
Progress Note (short form) - Note Progress Note: ID CONSULT DICTATED RESPIRATORY FAILURE R/O NECK ABSCESS IDDM HIV+ AWAIT CULTURES EMPIRIC CEFTRIAXONE/ FLAGYL/VANCOMYCIN
[2019-08-02 10:50] LABS: INR 1.29 (0.83-1.09); PROTHROMBIN TIME (PATIENT) 15.3 SEC (9.7-13.0)
[2019-08-02 10:54] LABS: ALBUMIN 3.1 g/dl (3.4-5.0); BILIRUBIN,TOTAL 0.7 mg/dL (0.2-1); BLOOD UREA NITROGEN 10.8 mg/dL (7-18); CALCIUM 8.2 mg/dL (8.5-10.1); CREATININE 1.4 mg/dL (0.55-1.3); POTASSIUM 4.3 mmol/L (3.5-5.1); TOT PROT 6.5 g/dl (6.4-8.2)
[2019-08-02] MEDS: FENTANYL INJECTION 500 MCG in DEXTROSE 5%-WATER - 90 ML IVPB SCH ×2 (11:13→21:50)
[2019-08-02 11:15] LABS: PLATELET ESTIMATE DECREASED
[2019-08-02] MEDS ORDERED: CEFTRIAXONE 1 GM/50 ML BAG ONE (12:11)
[2019-08-02] MEDS: CEFTRIAXONE 2 GM in DEXTROSE 5%-WATER 100 ML IVPB SCH (12:39)
--- NOTE | 2019-08-02 12:51 | HP ---
DATE OF ADMISSION: 08/01/2019 HISTORY: A 54-year-old man known to me for many years diagnosed to have HIV disease on treatment also diabetic. Not very compliant with his medication. Came to the emergency room last night with complaints of infection on the left side of the face. Patient was diagnosed to have cellulitis, Tra angina possible. Was admitted this morning. Developed acute . Patient had to be intubated. Now on respirator unresponsive because of sedation. PHYSICAL EXAMINATION: Vital Signs: BP 190/120, pulse 140, respirations 20, temperature 101. HEENT: Patient on a respirator. Lungs: Clear. Heart: S1, S2 normal. No S3, S4. Abdomen: Soft. Extremities: Legs, no edema. Neurologic: Unresponsive at present. Chest x-ray, unremarkable. Chest x-ray after the intubation, ET tube . No other changes. LABORATORIES: WBC 10, hemoglobin 13.5, platelets 186. Chemistry; sodium 134, potassium 4.2, chloride 101, BUN 15.7, creatinine 1.9, blood sugar 439. DIAGNOSES: 1. Cellulitis of the neck on respirator. 2. Uncontrolled diabetes. 3. Human immunodeficiency virus disease. PLAN: Admit to ICU. We will follow. Justin [id number]
--- NOTE | 2019-08-02 13:48 | CONSULT ---
Consultation: REQUESTING PROVIDER: CONSULT REQUEST: We have been asked to medically evaluate this patient for ICU. HISTORY OF PRESENT ILLNESS: Patient is a 54 yo male w/ pmh of IDDM, well controlled HIV (last viral load 3 months ago undetectable, CD4 count >400), DVT, PE (on eliquis), unstable angina , HTN, HLD who presented to ER for evaluation of warmth and swelling below his chin. Patient reported symptoms started following a shaving cut 3 days prior and had slowly progressed. Upon initial evaluation denied any concerning symptoms of breathing difficulty, drooling, voice changes, etc. Patient was noted to have elevated BGM and was given SQ insulin as well as IV fluids. Patient sent for CT neck for r/o tamara's angina, abscess. CT read from imaging manager of distribution noted moderate edema in subq tisssues and platysm bilaterally in submandibular neck extending to level of thyroid cartilage. Mild R heterogeneous enhancement of submandibular glands. Could not exlclude sialadenitis. No evidence for abscess. Patient was started on IV antibiotics with ID consult (lilliamo and lisethn recommended) and patient was admitted. Patient was evaluated at 0730 and found to have fever. Upon re-evaluation patient noted to have trismus with spread of swelling around face. Patient lungs remained clear however given change concern for rapidly progressing Tamara's angina prompted anesthesia consult with awake fiberoptic intubation and patient upgraded to ICU. Propofol / versed used for sedation. Patient placed on fentanyl drip for difficulty of sedation on propofol/versed alone. Abhilash Bactrim Infectious disease: Dr. Walter REVIEW OF SYSTEMS: CONSTITUTIONAL: Positive: fever Absent: diaphoresis, generalized weakness, malaise, loss of appetite, weight change HEENT: Positive: external submandibular swelling as described above. Absent: rhinorrhea, nasal congestion, throat pain, difficulty swallowing, mouth swelling , ear pain, eye pain, visual changes CARDIOVASCULAR: Absent: chest pain, syncope, palpitations, irregular heart rate, lightheadedness , peripheral edema RESPIRATORY: Absent: cough, shortness of breath, dyspnea with exertion, orthopnea, wheezing, stridor, hemoptysis GASTROINTESTINAL: Absent: abdominal pain, abdominal distension, nausea, vomiting, diarrhea, constipation, melena, hematochezia GENITOURINARY: Absent: dysuria, frequency, urgency, hesitancy, hematuria, flank pain, genital pain MUSCULOSKELETAL: Absent: myalgia, arthralgia, joint swelling, back pain, neck pain SKIN: Absent: rash, itching, pallor HEMATOLOGIC/IMMUNOLOGIC: Absent: easy bleeding, easy bruising, lymphadenopathy, frequent infections ENDOCRINE: Absent: unexplained weight gain, unexplained weight loss, heat intolerance, cold intolerance NEUROLOGIC: Absent: headache, focal weakness or paresthesias, dizziness, unsteady gait, seizure, mental status changes, bladder or bowel incontinence PSYCHIATRIC: Absent: anxiety, depression, suicidal or homicidal ideation, hallucinations. PHYSICAL EXAMINATION Vital Signs - 24 hr 08/01/19 08/01/19 08/02/19 17:41 21:26 01:28 Temperature 98.5 F 97.8 F 102.9 F H Pulse Rate 107 H Pulse Rate [ 86 111 H Left Ulnar] Respiratory 18 16 22 H Rate Blood Pressure 126/80 Blood Pressure 165/97 137/93 [Right Arm] O2 Sat by Pulse 97 100 97 Oximetry (%) 08/02/19 08/02/19 08/02/19 04:00 07:46 08:35 Temperature 103.8 F H Pulse Rate 137 H Pulse Rate [ 125 H Left Ulnar] Respiratory 18 16 Rate Blood Pressure Blood Pressure 122/73 [Right Arm] O2 Sat by Pulse 100 95 100 Oximetry (%) 08/02/19 08/02/19 08/02/19 08:56 08:58 08:59 Temperature Pulse Rate Pulse Rate [ 148 H 134 H 122 H Left Ulnar] Respiratory 17 33 H 18 Rate Blood Pressure Blood Pressure 124/80 193/120 H 193/120 H [Right Arm] O2 Sat by Pulse 97 98 98 Oximetry (%) 08/02/19 08/02/19 08/02/19 09:00 09:04 09:07 Temperature 101.7 F H Pulse Rate Pulse Rate [ 148 H 143 H 140 H Left Ulnar] Respiratory 27 H 17 16 Rate Blood Pressure Blood Pressure 193/120 H 193/120 H 193/120 H [Right Arm] O2 Sat by Pulse 99 98 98 Oximetry (%) 08/02/19 08/02/19 08/02/19 09:11 09:13 09:15 Temperature Pulse Rate Pulse Rate [ 140 H 141 H 129 H Left Ulnar] Respiratory 18 19 20 Rate Blood Pressure Blood Pressure 193/120 H 167/108 H 163/99 [Right Arm] O2 Sat by Pulse 98 100 97 Oximetry (%) 08/02/19 08/02/19 08/02/19 09:18 09:20 09:48 Temperature Pulse Rate Pulse Rate [ 140 H 138 H 128 H Left Ulnar] Respiratory 19 19 17 Rate Blood Pressure Blood Pressure 163/99 163/99 121/79 [Right Arm] O2 Sat by Pulse 100 100 100 Oximetry (%) 08/02/19 08/02/19 08/02/19 09:54 09:57 10:00 Temperature 101.8 F H Pulse Rate Pulse Rate [ 129 H 131 H 123 H Left Ulnar] Respiratory 24 H 22 H 22 H Rate Blood Pressure Blood Pressure 121/79 121/79 111/73 [Right Arm] O2 Sat by Pulse 100 100 100 Oximetry (%) 08/02/19 08/02/19 08/02/19 10:15 10:30 10:45 Temperature 101.5 F H 101.2 F H 100.7 F H Pulse Rate Pulse Rate [ 118 H 114 H 105 H Left Ulnar] Respiratory 20 15 18 Rate Blood Pressure Blood Pressure 126/81 112/77 111/73 [Right Arm] O2 Sat by Pulse 100 100 100 Oximetry (%) 08/02/19 08/02/19 08/02/19 11:00 11:19 11:30 Temperature 100.2 F H 99.8 F H 99.6 F Pulse Rate Pulse Rate [ 105 H 97 H 92 H Left Ulnar] Respiratory 22 H 19 19 Rate Blood Pressure Blood Pressure 121/83 113/75 112/76 [Right Arm] O2 Sat by Pulse 100 100 100 Oximetry (%) 08/02/19 08/02/19 08/02/19 11:45 12:00 12:15 Temperature 99.4 F 99.1 F 98.9 F Pulse Rate Pulse Rate [ 88 88 88 Left Ulnar] Respiratory 18 18 18 Rate Blood Pressure Blood Pressure 114/79 116/81 116/82 [Right Arm] O2 Sat by Pulse 100 100 100 Oximetry (%) 08/02/19 08/02/19 12:29 12:30 Temperature Pulse Rate 89 Pulse Rate [ Left Ulnar] Respiratory 18 Rate Blood Pressure Blood Pressure [Right Arm] O2 Sat by Pulse 100 Oximetry (%) GENERAL: +Patient intubated on ventilator, in no acute distress. HEAD: Normal with no signs of trauma. EYES: +R pupil cloudly c/w corneal repair. Sluggishly reactive c/w fentanyl drip , sclera anicteric, conjunctiva clear. No lid lag. EARS, NOSE, THROAT: +Submandibular swelling and erythema noted c/w history. Ears normal, nares patent. Moist mucous membranes. NECK: Normal range of motion, supple without lymphadenopathy, JVD, or masses. LUNGS: Breath sounds equal, clear to auscultation bilaterally. No wheezes, and no crackles. No accessory muscle use. HEART: Regular rate and rhythm, normal S1 and S2 without murmur, rub or gallop. ABDOMEN: Soft, nontender, not distended, normoactive bowel sounds, no guarding, no rebound, no masses. No hepatomegaly or splenomegaly. MUSCULOSKELETAL: Normal range of motion at all joints. No bony deformities or tenderness. No CVA tenderness. UPPER EXTREMITIES: 2+ pulses, warm, well-perfused. No cyanosis. No clubbing. Cap refill <2 seconds. No peripheral edema. LOWER EXTREMITIES: 2+ pulses, warm, well-perfused. No calf tenderness. No peripheral edema. NEUROLOGICAL: +Unable to assess at this time PSYCHIATRIC: +Unable to assess at this time SKIN: Warm, dry, normal turgor, no rashes or lesions noted. Laboratory Results - last 24 hr 08/01/19 08/01/19 08/01/19 18:40 18:40 18:40 WBC 10.0 RBC 4.38 Hgb 13.5 Hct 39.9 MCV 91.2 MCH 30.7 MCHC 33.7 RDW 13.6 Plt Count 186 D MPV 8.7 Absolute Neuts (auto) 7.7 Neutrophils % 76.9 Neutrophils % (Manual) Band Neutrophils % Lymphocytes % 14.4 D Lymphocytes % (Manual) Monocytes % 7.5 Monocytes % (Manual) Eosinophils % 0.3 Eosinophils % (Manual) Basophils % 0.9 Basophils % (Manual) Myelocytes % (Man) Promyelocytes % (Man) Blast Cells % (Manual) Nucleated RBC % 0 Metamyelocytes Platelet Estimate PT with INR 13.40 H INR 1.13 H Sodium 134 L Potassium 4.2 Chloride 101 Carbon Dioxide 26 Anion Gap 7 L BUN 15.7 Creatinine 1.9 H Est GFR (CKD-EPI)AfAm 45.00 Est GFR (CKD-EPI)NonAf 38.82 POC Glucometer Random Glucose 439 H* Calcium 8.4 L Total Bilirubin 0.4 AST 14 L ALT 32 Alkaline Phosphatase 79 Total Protein 7.3 Albumin 3.7 Urine Color Urine Appearance Urine pH Ur Specific [place] Urine Protein Urine Glucose (UA) Urine Ketones Urine Blood Urine Nitrite Urine Bilirubin Urine Urobilinogen Ur Leukocyte Esterase Blood Type Antibody Screen 08/01/19 08/01/19 08/02/19 21:45 21:47 01:22 WBC RBC Hgb Hct MCV MCH MCHC RDW Plt Count MPV Absolute Neuts (auto) Neutrophils % Neutrophils % (Manual) Band Neutrophils % Lymphocytes % Lymphocytes % (Manual) Monocytes % Monocytes % (Manual) Eosinophils % Eosinophils % (Manual) Basophils % Basophils % (Manual) Myelocytes % (Man) Promyelocytes % (Man) Blast Cells % (Manual) Nucleated RBC % Metamyelocytes Platelet Estimate PT with INR INR Sodium Potassium Chloride Carbon Dioxide Anion Gap BUN Creatinine Est GFR (CKD-EPI)AfAm Est GFR (CKD-EPI)NonAf POC Glucometer 309 222 Random Glucose Calcium Total Bilirubin AST ALT Alkaline Phosphatase Total Protein Albumin Urine Color Yellow Urine Appearance Clear Urine pH 5.5 Ur Specific [place] 1.038 H Urine Protein Negative Urine Glucose (UA) 3+ H Urine Ketones Negative Urine Blood Negative Urine Nitrite Negative Urine Bilirubin Negative Urine Urobilinogen 0.2 Ur Leukocyte Esterase Negative Blood Type Antibody Screen 08/02/19 08/02/19 08/02/19 10:00 10:00 10:00 WBC 11.1 H RBC 4.15 Hgb 12.4 Hct 37.3 MCV 89.9 MCH 29.9 MCHC 33.3 RDW 13.6 Plt Count 161 MPV 8.8 Absolute Neuts (auto) 9.8 H Neutrophils % 88.5 H Neutrophils % (Manual) 88.0 H Band Neutrophils % 1.0 Lymphocytes % 4.5 L D Lymphocytes % (Manual) 5.0 L Monocytes % 6.9 Monocytes % (Manual) 5 Eosinophils % 0.0 D Eosinophils % (Manual) 0.0 Basophils % 0.1 Basophils % (Manual) 0.0 Myelocytes % (Man) 0 Promyelocytes % (Man) 0 Blast Cells % (Manual) 0 Nucleated RBC % 0 Metamyelocytes 0 Platelet Estimate Decreased PT with INR 15.30 H INR 1.29 H Sodium 137 Potassium 4.3 Chloride 107 Carbon Dioxide 23 Anion Gap 8 BUN 10.8 Creatinine 1.4 H Est GFR (CKD-EPI)AfAm 65.09 Est GFR (CKD-EPI)NonAf 56.16 POC Glucometer Random Glucose 293 H Calcium 8.2 L Total Bilirubin 0.7 AST 16 ALT 27 Alkaline Phosphatase 66 Total Protein 6.5 Albumin 3.1 L Urine Color Urine Appearance Urine pH Ur Specific [place] Urine Protein Urine Glucose (UA) Urine Ketones Urine Blood Urine Nitrite Urine Bilirubin Urine Urobilinogen Ur Leukocyte Esterase Blood Type Antibody Screen 08/02/19 10:00 WBC RBC Hgb Hct MCV MCH MCHC RDW Plt Count MPV Absolute Neuts (auto) Neutrophils % Neutrophils % (Manual) Band Neutrophils % Lymphocytes % Lymphocytes % (Manual) Monocytes % Monocytes % (Manual) Eosinophils % Eosinophils % (Manual) Basophils % Basophils % (Manual) Myelocytes % (Man) Promyelocytes % (Man) Blast Cells % (Manual) Nucleated RBC % Metamyelocytes Platelet Estimate PT with INR INR Sodium Potassium Chloride Carbon Dioxide Anion Gap BUN Creatinine Est GFR (CKD-EPI)AfAm Est GFR (CKD-EPI)NonAf POC Glucometer Random Glucose Calcium Total Bilirubin AST ALT Alkaline Phosphatase Total Protein Albumin Urine Color Urine Appearance Urine pH Ur Specific [place] Urine Protein Urine Glucose (UA) Urine Ketones Urine Blood Urine Nitrite Urine Bilirubin Urine Urobilinogen Ur Leukocyte Esterase Blood Type A POSITIVE Antibody Screen Negative Active Medications Generic Name Dose Route Start Last Admin Trade Name Amauryq PRN Reason Stop Dose Admin Acetaminophen 650 mg 08/02/19 02:02 08/02/19 02:03 Tylenol - PO 650 mg Q6H PRN Administration FEVER Sodium Chloride 1,000 mls @ 125 mls/hr 08/02/19 00:15 08/02/19 00:20 Normal Saline - IV 125 mls/hr ASDIR THU Administration Propofol 1,000,000 mcg in 100 mls @ 2.667 mls/hr 08/02/19 08:45 08/02/19 10: 01 Diprivan - IVPB 65.61 mcg/kg/min TITR THU 35 mls/hr Titration Protocol 5 MCG/KG/MIN Fentanyl 500 mcg/ Dextrose 100 mls @ 5 mls/hr 08/02/19 10:30 08/02/19 11:13 IVPB 08/03/19 10:29 25 mcg/hr TITR THU 5 mls/hr Administration 25 MCG/HR Ceftriaxone Sodium 2 gm/ 100 mls @ 100 mls/hr 08/02/19 11:00 08/02/19 12:39 Dextrose IVPB 100 mls/hr DAILY THU Administration Protocol Metronidazole 500 mg in 100 mls @ 100 mls/hr 08/02/19 11:00 08/02/19 12:18 Flagyl 500mg Premixed Ivpb - IVPB 100 mls/hr Q8H-IV THU Administration Vancomycin HCl 1,000 mg/ 250 mls @ 166.667 mls/hr 08/02/19 13:45 Dextrose IVPB Q12H THU Protocol Midazolam HCl 2 mg 08/02/19 10:27 Versed - IVPUSH 08/03/19 10:26 Q2H PRN AGITATION ASSESSMENT/PLAN: Patient is a 54 yo male w/ pmh of IDDM, well controlled HIV, DVT, PE on eliquis , unstable angina, HTN, HLD currently intubated for airway protection with ID consult for significant submandibular swelling on propofol and fentanyl drip. #Neuro - patient intubated - continue propofol and fentanyl for sedation, monitor #ID - Submandibular edema - Intubated for airway protection - ENT on board - urine and blood cultures pending - ID consulted for HIV as well as r/o Tamara's. - Will continue empiric ceftriaxone/flagyl/vancomycin per ID notes - Will defer to ID RE: [email or web address] #Cardio - patient on monitor #Respiratory - continue intubation for airway protection - weening trial tomorrow #Endo - sliding scale insulin #Prophylaxis - SCDs #FEN - Strict NPO #Disposition - Monitor in ICU We will continue to follow the patient. Thank you for this consultative opportunity. Visit type - Emergency Visit Emergency Visit: Yes ED Registration Date: 08/01/19 Care time: The patient presented to the Emergency Department on the above date and was hospitalized for further evaluation of their emergent condition. - New Patient This patient is new to me today: Yes Date on this admission: 08/02/19 - Critical Care Critical Care patient: Yes Total Critical Care Time (in minutes): 45 Critical Care Statement: The care of this patient involved high complexity decision making to prevent further life threatening deterioration of the patient 's condition and/or to evaluate & treat vital organ system(s) failure or risk of failure. ATTENDING PHYSICIAN STATEMENT I saw and evaluated the patient. I reviewed the resident's note and discussed the case with the resident. I agree with the resident's findings and plan as documented. SUBJECTIVE: OBJECTIVE: ASSESSMENT AND PLAN:
[2019-08-02] MEDS ORDERED: PROPOFOL 2,000,000 MCG/200 ML VIAL ONE (13:57)
[2019-08-02] MEDS ORDERED: APIXABAN 5 MG TABLET PO SCH (14:39)
[2019-08-02] MEDS ORDERED: ATORVASTATIN CA 10 MG TABLET (FP) PO SCH (14:40)
[2019-08-02] MEDS ORDERED: ABACAVIR/DOLUTEGRAVIR/LAMIVUDI (TRIUMEQ) TABLET -NF PO SCH (14:45)
[2019-08-02] MEDS ORDERED: LOSARTAN POTASSIUM 50 MG TABLET (FP) PO SCH (14:45)
--- NOTE | 2019-08-02 15:02 | PN ---
Teaching Attending Note Name of Resident: Humza Figueroa ATTENDING PHYSICIAN STATEMENT I saw and evaluated the patient. I reviewed the resident's note and discussed the case with the resident. I agree with the resident's findings and plan as documented. SUBJECTIVE: Patient seen and examined in the ICU. Intubated on AC Mode of vent. No pressors. Suspected submandibular abscess. Intake & Output 07/30/19 07/31/19 08/01/19 08/02/19 23:59 23:59 23:59 23:59 Weight 196 lb 201 lb 15.095 oz Last Vital Signs Temp Pulse Resp BP Pulse Ox 98.1 F 88 19 132/93 99 08/02/19 14:30 08/02/19 14:30 08/02/19 14:30 08/02/19 14:30 08/02/19 14:41 Active Medications Acetaminophen (Tylenol -) 650 mg PO Q6H PRN PRN Reason: FEVER Last Admin: 08/02/19 02:03 Dose: 650 mg Sodium Chloride (Normal Saline -) 1,000 mls @ 125 mls/hr IV ASDIR THU Last Admin: 08/02/19 00:20 Dose: 125 mls/hr Propofol (Diprivan -) 1,000,000 mcg in 100 mls @ 2.667 mls/hr IVPB TITR THU; Protocol Last Titration: 08/02/19 10:01 Dose: 65.61 mcg/kg/min, 35 mls/hr Fentanyl 500 mcg/ Dextrose 100 mls @ 5 mls/hr IVPB TITR THU Stop: 08/03/19 10:29 Last Admin: 08/02/19 11:13 Dose: 25 mcg/hr, 5 mls/hr Ceftriaxone Sodium 2 gm/ (Dextrose) 100 mls @ 100 mls/hr IVPB DAILY THU; Protocol Last Admin: 08/02/19 12:39 Dose: 100 mls/hr Metronidazole (Flagyl 500mg Premixed Ivpb -) 500 mg in 100 mls @ 100 mls/hr IVPB Q8H-IV THU Last Admin: 08/02/19 12:18 Dose: 100 mls/hr Vancomycin HCl (Vancomycin (Pre-Docked)) 1,000 mg in 250 mls @ 166.667 mls/hr IVPB Q12H THU; Protocol Insulin Aspart (Novolog Vial Sliding Scale -) 1 vial SQ ACHS [facility]; Protocol Midazolam HCl (Versed -) 2 mg IVPUSH Q2H PRN PRN Reason: AGITATION Stop: 08/03/19 10:26 GENERAL: Intubated and sedated HEAD: Normal with no signs of trauma. EYES: constricted EARS, NOSE, THROAT: (+) Submandibular swelling and erythema LUNGS: Vented, breath sounds clear to auscultation bilaterally. No wheezes, and no crackles. No accessory muscle use. HEART: Regular rate and rhythm, normal S1 and S2 without murmur, rub or gallop. ABDOMEN: Soft, nontender, not distended, normoactive bowel sounds, no guarding, no rebound, no masses. No hepatomegaly or splenomegaly. MUSCULOSKELETAL: Normal range of motion at all joints. No bony deformities or tenderness. No CVA tenderness. UPPER EXTREMITIES: 2+ pulses, warm, well-perfused. No cyanosis. No clubbing. Cap refill <2 seconds. No peripheral edema. LOWER EXTREMITIES: 2+ pulses, warm, well-perfused. No calf tenderness. No peripheral edema. NEUROLOGICAL: sedated PSYCHIATRIC: sedated Laboratory Results - last 24 hr 08/01/19 08/01/19 08/01/19 18:40 18:40 18:40 WBC 10.0 RBC 4.38 Hgb 13.5 Hct 39.9 MCV 91.2 MCH 30.7 MCHC 33.7 RDW 13.6 Plt Count 186 D MPV 8.7 Absolute Neuts (auto) 7.7 Neutrophils % 76.9 Neutrophils % (Manual) Band Neutrophils % Lymphocytes % 14.4 D Lymphocytes % (Manual) Monocytes % 7.5 Monocytes % (Manual) Eosinophils % 0.3 Eosinophils % (Manual) Basophils % 0.9 Basophils % (Manual) Myelocytes % (Man) Promyelocytes % (Man) Blast Cells % (Manual) Nucleated RBC % 0 Metamyelocytes Platelet Estimate PT with INR 13.40 H INR 1.13 H Sodium 134 L Potassium 4.2 Chloride 101 Carbon Dioxide 26 Anion Gap 7 L BUN 15.7 Creatinine 1.9 H Est GFR (CKD-EPI)AfAm 45.00 Est GFR (CKD-EPI)NonAf 38.82 POC Glucometer Random Glucose 439 H* Calcium 8.4 L Total Bilirubin 0.4 AST 14 L ALT 32 Alkaline Phosphatase 79 Total Protein 7.3 Albumin 3.7 Urine Color Urine Appearance Urine pH Ur Specific [place] Urine Protein Urine Glucose (UA) Urine Ketones Urine Blood Urine Nitrite Urine Bilirubin Urine Urobilinogen Ur Leukocyte Esterase Blood Type Antibody Screen 08/01/19 08/01/19 08/02/19 21:45 21:47 01:22 WBC RBC Hgb Hct MCV MCH MCHC RDW Plt Count MPV Absolute Neuts (auto) Neutrophils % Neutrophils % (Manual) Band Neutrophils % Lymphocytes % Lymphocytes % (Manual) Monocytes % Monocytes % (Manual) Eosinophils % Eosinophils % (Manual) Basophils % Basophils % (Manual) Myelocytes % (Man) Promyelocytes % (Man) Blast Cells % (Manual) Nucleated RBC % Metamyelocytes Platelet Estimate PT with INR INR Sodium Potassium Chloride Carbon Dioxide Anion Gap BUN Creatinine Est GFR (CKD-EPI)AfAm Est GFR (CKD-EPI)NonAf POC Glucometer 309 222 Random Glucose Calcium Total Bilirubin AST ALT Alkaline Phosphatase Total Protein Albumin Urine Color Yellow Urine Appearance Clear Urine pH 5.5 Ur Specific [place] 1.038 H Urine Protein Negative Urine Glucose (UA) 3+ H Urine Ketones Negative Urine Blood Negative Urine Nitrite Negative Urine Bilirubin Negative Urine Urobilinogen 0.2 Ur Leukocyte Esterase Negative Blood Type Antibody Screen 08/02/19 08/02/19 08/02/19 10:00 10:00 10:00 WBC 11.1 H RBC 4.15 Hgb 12.4 Hct 37.3 MCV 89.9 MCH 29.9 MCHC 33.3 RDW 13.6 Plt Count 161 MPV 8.8 Absolute Neuts (auto) 9.8 H Neutrophils % 88.5 H Neutrophils % (Manual) 88.0 H Band Neutrophils % 1.0 Lymphocytes % 4.5 L D Lymphocytes % (Manual) 5.0 L Monocytes % 6.9 Monocytes % (Manual) 5 Eosinophils % 0.0 D Eosinophils % (Manual) 0.0 Basophils % 0.1 Basophils % (Manual) 0.0 Myelocytes % (Man) 0 Promyelocytes % (Man) 0 Blast Cells % (Manual) 0 Nucleated RBC % 0 Metamyelocytes 0 Platelet Estimate Decreased PT with INR 15.30 H INR 1.29 H Sodium 137 Potassium 4.3 Chloride 107 Carbon Dioxide 23 Anion Gap 8 BUN 10.8 Creatinine 1.4 H Est GFR (CKD-EPI)AfAm 65.09 Est GFR (CKD-EPI)NonAf 56.16 POC Glucometer Random Glucose 293 H Calcium 8.2 L Total Bilirubin 0.7 AST 16 ALT 27 Alkaline Phosphatase 66 Total Protein 6.5 Albumin 3.1 L Urine Color Urine Appearance Urine pH Ur Specific [place] Urine Protein Urine Glucose (UA) Urine Ketones Urine Blood Urine Nitrite Urine Bilirubin Urine Urobilinogen Ur Leukocyte Esterase Blood Type Antibody Screen 08/02/19 10:00 WBC RBC Hgb Hct MCV MCH MCHC RDW Plt Count MPV Absolute Neuts (auto) Neutrophils % Neutrophils % (Manual) Band Neutrophils % Lymphocytes % Lymphocytes % (Manual) Monocytes % Monocytes % (Manual) Eosinophils % Eosinophils % (Manual) Basophils % Basophils % (Manual) Myelocytes % (Man) Promyelocytes % (Man) Blast Cells % (Manual) Nucleated RBC % Metamyelocytes Platelet Estimate PT with INR INR Sodium Potassium Chloride Carbon Dioxide Anion Gap BUN Creatinine Est GFR (CKD-EPI)AfAm Est GFR (CKD-EPI)NonAf POC Glucometer Random Glucose Calcium Total Bilirubin AST ALT Alkaline Phosphatase Total Protein Albumin Urine Color Urine Appearance Urine pH Ur Specific [place] Urine Protein Urine Glucose (UA) Urine Ketones Urine Blood Urine Nitrite Urine Bilirubin Urine Urobilinogen Ur Leukocyte Esterase Blood Type A POSITIVE Antibody Screen Negative ASSESSMENT/PLAN: Acute Respiratory Failure R/O Submandibular abscess IDDM HIV DVT & PE on eliquis Angina HTN HLD ABX Per ID AC Mode of vent IVF Sedate for vent synchrony Will need follow up CT In AM VTE prophylaxis Glycemic control NPO Requires ICU monitoring Dr Live Critical care time spent in reviewing chart, evaluating patient and formulating plan - 36 minutes.
--- NOTE | 2019-08-02 16:42 | CONS ---
INFECTIOUS DISEASE CONSULTATION DATE OF CONSULTATION: DATE OF DICTATION: 08/02/2019 HISTORY: The patient is a 54-year-old male history of insulin-dependent diabetes mellitus, HIV disease evaluated for cellulitis of the neck. History was obtained from the chart as he is presently intubated and unable to give a history. According to the notes, he cut himself shaving 3 days ago and developed worsening neck swelling and erythema. He presented to the emergency room where he developed respiratory failure requiring intubation and transferred to the intensive care unit. He was noted to have a blood sugar in excess of 400. He was empirically treated with antibiotics. A CAT scan of the neck was performed and was reviewed with the radiologist. It shows diffuse swelling of the soft tissues of the neck, however, no evidence of jugular vein thrombosis or abscess formation. His course has been complicated by fever to 103.8 and elevated white blood cell count. At the present time, he is intubated in the intensive care unit. PAST MEDICAL HISTORY: Positive for HIV disease. He is stable with an undetectable viral load and a T cell count of 423. He is adherent to antiretroviral therapy. Past medical history also includes insulin-dependent diabetes mellitus, DVT, pulmonary embolism. ALLERGIES: SULFA. MEDICATIONS: Levemir, Eliquis, Cozaar, metformin, Triumeq. SOCIAL HISTORY: Resides in the community. No active tobacco or alcohol use. SYSTEMS REVIEW: Neurologic: No loss of consciousness, seizure activity, focal weakness. Cardiac: Negative chest pain or palpitations. Respiratory: Negative for cough or sputum production. Gastrointestinal: Negative vomiting or diarrhea. Genitourinary: Negative for urinary tract infection. LABORATORY DATA: White count 10.0, hematocrit 39.9, platelets 186, BUN 15.7, creatinine 1.9, glucose 439. Urinalysis negative. CAT scan of the neck as described. PHYSICAL EXAMINATION: General: He is sedated on the ventilator. Vital Signs: Maximum temperature 103.8, blood pressure 113/76, pulse 78 regular, respirations 16 per minute. HEENT: Sclerae anicteric. Heart: Sounds S1, S2. Lungs: Air entry bilaterally. Neck: There is diffuse swelling of the neck from below the jawline to the upper chest. There is faint erythema present extending to the area below the sternal notch. Slightly erythematous and warm. There is no crepitus present. Abdomen: Soft and nontender. Extremities: Negative for edema. IMPRESSION: 1. Cellulitis of the skin and soft tissue of the neck. 2. Respiratory failure. 3. Insulin-dependent diabetes mellitus. 4. History of human immunodeficiency virus positive, asymptomatic. PLAN: Await cultures. Empiric antibiotic coverage with vancomycin, ceftriaxone, Flagyl. ENT evaluation. Continue ventilatory support and ICU monitoring. Thank you for the kind referral. CHAGO GARZA M.D. [id number]
[2019-08-02] MEDS: VANCOMYCIN 1 GRAM (PRE-DOCKED) 1,000 MG/250 ML BAG IVPB SCH (21:38)
[2019-08-02] MEDS ORDERED: fentaNYL CITRATE 250 MCG/5 ML VIAL ONE (21:47)
[2019-08-02] MEDS: INSULIN SLIDING SCALE (NOVOLOG) 1 VIAL SQ SCH (23:11)
[2019-08-03] MEDS: PROPOFOL 1,000,000 MCG/100 ML VIAL IVPB SCH ×4 (00:43→22:53)
[2019-08-03] MEDS: SODIUM CHLORIDE 1,000 ML IV SCH (06:04)
[2019-08-03] MEDS: INSULIN SLIDING SCALE (NOVOLOG) 1 VIAL SQ SCH ×5 (06:06→21:52)
[2019-08-03] MEDS ORDERED: INSULIN SLIDING SCALE (NOVOLOG) 1 VIAL SQ SCH (07:00)
[2019-08-03] MEDS ORDERED: metFORMIN HCL 500 MG TABLET (FP) PO SCH (07:00)
--- NOTE | 2019-08-03 07:46 | PN ---
Physical Exam: SUBJECTIVE: Patient seen and examined by the dside, intubated and sedated. OBJECTIVE: Vital Signs Period Temp Pulse Resp BP Sys/Wheeler Pulse Ox Last 24 Hr 97 F-103.8 F 76-148 12-33 99-193/67-120 95-100 GENERAL: Intubated and sedated HEAD: Normal with no signs of trauma. NECK: Submandibular swelling with erythema LUNGS: Transmitted breath sounds B/L, no wheezes or crackles HEART: RRR, no murmurs or rubs ABDOMEN: Soft, nontender, not distended LOWER EXTREMITIES: 2+ pulses, warm, no edema NEUROLOGICAL: sedated PSYCHIATRIC: sedated Laboratory Results - last 24 hr 08/02/19 08/02/19 08/02/19 10:00 10:00 10:00 WBC 11.1 H RBC 4.15 Hgb 12.4 Hct 37.3 MCV 89.9 MCH 29.9 MCHC 33.3 RDW 13.6 Plt Count 161 MPV 8.8 Absolute Neuts (auto) 9.8 H Neutrophils % 88.5 H Neutrophils % (Manual) 88.0 H Band Neutrophils % 1.0 Lymphocytes % 4.5 L D Lymphocytes % (Manual) 5.0 L Monocytes % 6.9 Monocytes % (Manual) 5 Eosinophils % 0.0 D Eosinophils % (Manual) 0.0 Basophils % 0.1 Basophils % (Manual) 0.0 Myelocytes % (Man) 0 Promyelocytes % (Man) 0 Blast Cells % (Manual) 0 Nucleated RBC % 0 Metamyelocytes 0 Platelet Estimate Decreased PT with INR 15.30 H INR 1.29 H Sodium 137 Potassium 4.3 Chloride 107 Carbon Dioxide 23 Anion Gap 8 BUN 10.8 Creatinine 1.4 H Est GFR (CKD-EPI)AfAm 65.09 Est GFR (CKD-EPI)NonAf 56.16 POC Glucometer Random Glucose 293 H Calcium 8.2 L Total Bilirubin 0.7 AST 16 ALT 27 Alkaline Phosphatase 66 Total Protein 6.5 Albumin 3.1 L Blood Type Antibody Screen 08/02/19 08/02/19 08/02/19 10:00 19:09 22:52 WBC RBC Hgb Hct MCV MCH MCHC RDW Plt Count MPV Absolute Neuts (auto) Neutrophils % Neutrophils % (Manual) Band Neutrophils % Lymphocytes % Lymphocytes % (Manual) Monocytes % Monocytes % (Manual) Eosinophils % Eosinophils % (Manual) Basophils % Basophils % (Manual) Myelocytes % (Man) Promyelocytes % (Man) Blast Cells % (Manual) Nucleated RBC % Metamyelocytes Platelet Estimate PT with INR INR Sodium Potassium Chloride Carbon Dioxide Anion Gap BUN Creatinine Est GFR (CKD-EPI)AfAm Est GFR (CKD-EPI)NonAf POC Glucometer 272 304 Random Glucose Calcium Total Bilirubin AST ALT Alkaline Phosphatase Total Protein Albumin Blood Type A POSITIVE Antibody Screen Negative 08/03/19 05:37 WBC RBC Hgb Hct MCV MCH MCHC RDW Plt Count MPV Absolute Neuts (auto) Neutrophils % Neutrophils % (Manual) Band Neutrophils % Lymphocytes % Lymphocytes % (Manual) Monocytes % Monocytes % (Manual) Eosinophils % Eosinophils % (Manual) Basophils % Basophils % (Manual) Myelocytes % (Man) Promyelocytes % (Man) Blast Cells % (Manual) Nucleated RBC % Metamyelocytes Platelet Estimate PT with INR INR Sodium Potassium Chloride Carbon Dioxide Anion Gap BUN Creatinine Est GFR (CKD-EPI)AfAm Est GFR (CKD-EPI)NonAf POC Glucometer 252 Random Glucose Calcium Total Bilirubin AST ALT Alkaline Phosphatase Total Protein Albumin Blood Type Antibody Screen Active Medications Generic Name Dose Route Start Last Admin Trade Name Freq PRN Reason Stop Dose Admin Acetaminophen 650 mg 08/02/19 02:02 08/02/19 02:03 Tylenol - PO 650 mg Q6H PRN Administration FEVER Chlorhexidine Gluconate 15 ml 08/03/19 10:00 Peridex - MM BID THU Sodium Chloride 1,000 mls @ 125 mls/hr 08/02/19 00:15 08/03/19 06:04 Normal Saline - IV Not Given ASDIR THU Propofol 1,000,000 mcg in 100 mls @ 2.667 mls/hr 08/02/19 08:45 08/03/19 06: 29 Diprivan - IVPB 55 mcg/kg/min TITR THU 29.338 mls/hr Titration Protocol 5 MCG/KG/MIN Fentanyl 500 mcg/ Dextrose 100 mls @ 5 mls/hr 08/02/19 10:30 08/03/19 06:30 IVPB 08/03/19 10:29 25 mcg/hr TITR THU 5 mls/hr Titration 25 MCG/HR Ceftriaxone Sodium 2 gm/ 100 mls @ 100 mls/hr 08/02/19 11:00 08/02/19 12:39 Dextrose IVPB 100 mls/hr DAILY THU Administration Protocol Metronidazole 500 mg in 100 mls @ 100 mls/hr 08/02/19 11:00 08/03/19 01:07 Flagyl 500mg Premixed Ivpb - IVPB 100 mls/hr Q8H-IV THU Administration Vancomycin HCl 1,000 mg in 250 mls @ 166.667 mls/hr 08/02/19 21:30 08/02/19 21:38 Vancomycin (Pre-Docked) IVPB 166.667 mls/hr Q12H THU Administration Protocol Insulin Aspart 1 vial 08/02/19 23:00 08/03/19 06:06 Novolog Vial Sliding Scale - SQ 6 unit ACHS THU Administration Protocol Midazolam HCl 2 mg 08/02/19 10:27 Versed - IVPUSH 08/03/19 10:26 Q2H PRN AGITATION ASSESSMENT/PLAN: 54M with PMH of DM, HIV (3m ago VL undetectable, CD > 400, DVT, PE eliquis, unstable angina, HTN, HLD. Presented to the ER for evaluation of warmth and swelling below his chin that started 3 days ago after sustaining a cut while shaving. Intubated for concern of airway compromise. #Neuro - Intubated on Propofol and Fentanyl #ENT - Consult: Submandibular cellulitis/possible abscess. CT Neck w contrast to re- assess for a drainable collection, call Dr. Bai [phone] with results - CT neck wo contrast: No abscess, sq edema seen B/L at ventral half of upper neck, submandibular glands slightly prominent B/L, possible sialoadenitis #ID - Submandibular edema, intubated for airway protection - Urine and Blood cx pending - ID recs: Ceftriaxone, Metronidazole, Vancomycin - Will defer to ID RE: [email or web address] #Respiratory - CXR 08/03: Minimal atelectasis and pleural reaction at L lung base, ETT at level of calvicular heads, will move distally #Endo - Novolog SS #DVT PE - SCDs #FEN - Strict NPO - R/L started, switched from N/S due to Cl of 110 #Disposition - Monitor in ICU ATTENDING PHYSICIAN STATEMENT I saw and evaluated the patient. I reviewed the resident's note and discussed the case with the resident. I agree with the resident's findings and plan as documented. SUBJECTIVE: OBJECTIVE: ASSESSMENT AND PLAN:
[2019-08-03 07:53] LABS: BASO % 0.2 % (0-2.0); EOS % 0.1 % (0-4.5); HEMATOCRIT 35.2 % (35.4-49); HEMOGLOBIN 11.9 GM/dL (11.7-16.9); LYMPH % 6.5 % (8-40); MCH 30.6 pg (25.7-33.7); MCHC 33.8 g/dl (32.0-35.9); MEAN CELL VOLUME 90.4 fl (80-96); MONO % 7.4 % (3.8-10.2); NEUT % 85.8 % (42.8-82.8); PLATELET COUNT 155 K/MM3 (134-434); RBC 3.89 M/mm3 (4.00-5.60); RDW 13.4 % (11.9-15.9); WHITE BLOOD COUNT 9.8 K/mm3 (4.0-10.0)
[2019-08-03 08:16] LABS: ALBUMIN 2.5 g/dl (3.4-5.0); BILIRUBIN,TOTAL 0.2 mg/dL (0.2-1); BLOOD UREA NITROGEN 19.3 mg/dL (7-18); CALCIUM 8.1 mg/dL (8.5-10.1); CREATININE 1.2 mg/dL (0.55-1.3); MAGNESIUM 2.4 mg/dL (1.8-2.4); PHOSPHOROUS 3.4 mg/dL (2.5-4.9); POTASSIUM 4.4 mmol/L (3.5-5.1); TOT PROT 5.9 g/dl (6.4-8.2)
[2019-08-03] MEDS ORDERED: DEXTROSE 5%-WATER 100 ML IVPB ONE (08:44)
[2019-08-03] MEDS ORDERED: fentaNYL CITRATE 250 MCG/5 ML VIAL ONE ×3 (08:52→21:59)
--- NOTE | 2019-08-03 08:59 | PN ---
Progress Note, Physician Chief Complaint: On respirator - Current Medication List Current Medications: Active Medications Acetaminophen (Tylenol -) 650 mg PO Q6H PRN PRN Reason: FEVER Last Admin: 08/02/19 02:03 Dose: 650 mg Chlorhexidine Gluconate (Peridex -) 15 ml MM BID THU Sodium Chloride (Normal Saline -) 1,000 mls @ 125 mls/hr IV ASDIR THU Last Admin: 08/03/19 06:04 Dose: Not Given Propofol (Diprivan -) 1,000,000 mcg in 100 mls @ 2.667 mls/hr IVPB TITR THU; Protocol Last Titration: 08/03/19 06:29 Dose: 55 mcg/kg/min, 29.338 mls/hr Fentanyl 500 mcg/ Dextrose 100 mls @ 5 mls/hr IVPB TITR THU Stop: 08/03/19 10:29 Last Titration: 08/03/19 06:30 Dose: 25 mcg/hr, 5 mls/hr Ceftriaxone Sodium 2 gm/ (Dextrose) 100 mls @ 100 mls/hr IVPB DAILY THU; Protocol Last Admin: 08/02/19 12:39 Dose: 100 mls/hr Metronidazole (Flagyl 500mg Premixed Ivpb -) 500 mg in 100 mls @ 100 mls/hr IVPB Q8H-IV THU Last Admin: 08/03/19 01:07 Dose: 100 mls/hr Vancomycin HCl (Vancomycin (Pre-Docked)) 1,000 mg in 250 mls @ 166.667 mls/hr IVPB Q12H THU; Protocol Last Admin: 08/02/19 21:38 Dose: 166.667 mls/hr Insulin Aspart (Novolog Vial Sliding Scale -) 1 vial SQ ACHS THU; Protocol Last Admin: 08/03/19 06:06 Dose: 6 unit Midazolam HCl (Versed -) 2 mg IVPUSH Q2H PRN PRN Reason: AGITATION Stop: 08/03/19 10:26 - Objective Vital Signs: Vital Signs Temperature 98.2 F 08/03/19 06:00 Pulse Rate 78 08/03/19 06:00 Respiratory Rate 14 08/03/19 08:42 Blood Pressure 102/67 08/03/19 06:00 O2 Sat by Pulse Oximetry (%) 100 08/02/19 21:00 Eyes: Yes: WNL HENT: Yes: Pharyngeal Erythema Cardiovascular: Yes: WNL Respiratory: Yes: Mechanically Ventilated Gastrointestinal: Yes: Normal Bowel Sounds ...Rectal Exam: Yes: Deferred Genitourinary: Yes: WNL Peripheral Pulses WNL: Yes Neurological: Yes: Other (sedated) Labs: CBC, BMP 08/03/19 06:50 08/03/19 06:50 INR, PTT INR 1.29 (0.83-1.09) H 08/02/19 10:00 - ....Imaging Chest X-ray: Image Reviewed Assessment/Plan Case discussed with resident,advised ENT consult Dr CUELLAR
[2019-08-03] MEDS: CHLORHEXIDINE GLUCONATE 0.12% 15ML CUP MM SCH ×2 (09:04→21:52)
[2019-08-03] MEDS: VANCOMYCIN 1 GRAM (PRE-DOCKED) 1,000 MG/250 ML BAG IVPB SCH ×2 (10:34→21:52)
[2019-08-03] MEDS: CEFTRIAXONE 2 GM in DEXTROSE 5%-WATER 100 ML IVPB SCH (10:40)
--- NOTE | 2019-08-03 11:27 | PN ---
Teaching Attending Note Name of Resident: Manas Lr ATTENDING PHYSICIAN STATEMENT I saw and evaluated the patient. I reviewed the resident's note and discussed the case with the resident. I agree with the resident's findings and plan as documented. SUBJECTIVE: Patient seen and examined in the ICU. Intubated on AC Mode of vent. No pressors. Intake & Output 07/31/19 08/01/19 08/02/19 08/03/19 23:59 23:59 23:59 23:59 Intake Total 0 1965 Output Total 2500 800 Balance -2500 1165 Weight 196 lb 201 lb 15.095 oz Last Vital Signs Temp Pulse Resp BP Pulse Ox 97.9 F 77 18 125/79 100 08/03/19 10:00 08/03/19 10:00 08/03/19 10:00 08/03/19 10:00 08/02/19 21:00 Active Medications Acetaminophen (Tylenol -) 650 mg PO Q6H PRN PRN Reason: FEVER Last Admin: 08/02/19 02:03 Dose: 650 mg Chlorhexidine Gluconate (Peridex -) 15 ml MM BID THU Last Admin: 08/03/19 09:04 Dose: 15 ml Sodium Chloride (Normal Saline -) 1,000 mls @ 125 mls/hr IV ASDIR THU Last Admin: 08/03/19 06:04 Dose: Not Given Propofol (Diprivan -) 1,000,000 mcg in 100 mls @ 2.667 mls/hr IVPB TITR THU; Protocol Last Titration: 08/03/19 07:00 Dose: 50 mcg/kg/min, 26.671 mls/hr Ceftriaxone Sodium 2 gm/ (Dextrose) 100 mls @ 100 mls/hr IVPB DAILY THU; Protocol Last Admin: 08/03/19 10:40 Dose: 100 mls/hr Metronidazole (Flagyl 500mg Premixed Ivpb -) 500 mg in 100 mls @ 100 mls/hr IVPB Q8H-IV THU Last Admin: 08/03/19 09:02 Dose: 100 mls/hr Vancomycin HCl (Vancomycin (Pre-Docked)) 1,000 mg in 250 mls @ 166.667 mls/hr IVPB Q12H THU; Protocol Last Admin: 08/03/19 10:34 Dose: 166.667 mls/hr Insulin Aspart (Novolog Vial Sliding Scale -) 1 vial SQ [facility]; Protocol Last Admin: 08/03/19 06:06 Dose: 6 unit GENERAL: Intubated and sedated HEAD: Normal with no signs of trauma. EYES: constricted EARS, NOSE, THROAT: (+) Submandibular swelling and erythema LUNGS: Vented, breath sounds clear to auscultation bilaterally. No wheezes, and no crackles. No accessory muscle use. HEART: Regular rate and rhythm, normal S1 and S2 without murmur, rub or gallop. ABDOMEN: Soft, nontender, not distended, normoactive bowel sounds, no guarding, no rebound, no masses. No hepatomegaly or splenomegaly. MUSCULOSKELETAL: Normal range of motion at all joints. No bony deformities or tenderness. No CVA tenderness. UPPER EXTREMITIES: 2+ pulses, warm, well-perfused. No cyanosis. No clubbing. Cap refill <2 seconds. No peripheral edema. LOWER EXTREMITIES: 2+ pulses, warm, well-perfused. No calf tenderness. No peripheral edema. NEUROLOGICAL: sedated PSYCHIATRIC: sedated Laboratory Results - last 24 hr 08/02/19 08/02/19 08/03/19 19:09 22:52 05:37 WBC RBC Hgb Hct MCV MCH MCHC RDW Plt Count MPV Absolute Neuts (auto) Neutrophils % Lymphocytes % Monocytes % Eosinophils % Basophils % Nucleated RBC % Sodium Potassium Chloride Carbon Dioxide Anion Gap BUN Creatinine Est GFR (CKD-EPI)AfAm Est GFR (CKD-EPI)NonAf POC Glucometer 272 304 252 Random Glucose Calcium Phosphorus Magnesium Total Bilirubin AST ALT Alkaline Phosphatase Total Protein Albumin 08/03/19 08/03/19 06:50 06:50 WBC 9.8 RBC 3.89 L Hgb 11.9 Hct 35.2 L MCV 90.4 MCH 30.6 MCHC 33.8 RDW 13.4 Plt Count 155 MPV 9.0 Absolute Neuts (auto) 8.4 H Neutrophils % 85.8 H Lymphocytes % 6.5 L D Monocytes % 7.4 Eosinophils % 0.1 D Basophils % 0.2 Nucleated RBC % 0 Sodium 140 Potassium 4.4 Chloride 110 H Carbon Dioxide 26 Anion Gap 5 L BUN 19.3 H Creatinine 1.2 Est GFR (CKD-EPI)AfAm 78.43 Est GFR (CKD-EPI)NonAf 67.67 POC Glucometer Random Glucose 254 H Calcium 8.1 L Phosphorus 3.4 Magnesium 2.4 Total Bilirubin 0.2 AST 10 L ALT 22 Alkaline Phosphatase 58 Total Protein 5.9 L Albumin 2.5 L ASSESSMENT/PLAN: Acute Respiratory Failure R/O Submandibular abscess IDDM HIV DVT & PE on eliquis Angina HTN HLD For repeat CT imaging ABX Per ID AC Mode of vent IVF Sedate for vent synchrony VTE prophylaxis Glycemic control NPO Requires ICU monitoring Dr Live Critical care time spent in reviewing chart, evaluating patient and formulating plan - 36 minutes.
--- NOTE | 2019-08-03 12:16 | CONSULT ---
Consult - text type - Consultation Consultation Note: ENT consult 54 yo man with neck swelling x 2 days. On broad spectrum IV abx. Hx of HIV and diabetes. Rapid progression of swelling in ER led to intubation. Currently afebrile and normal WBC. CT neck with contrast from admission did not show any collections. P/WD BM laying supine, orally intubated and sedated, unresponsive to oral stimuli or physical examination Tense edema of the entire submental/submandibular regions of the neck, symmetric Some erythema of the lower portions of the neck and upper chest Floor of mouth is soft and not elevated. Imp: Submandibular cellulitis, possible abscess Recommend repeat CT neck with IV contrast to re-assess for a drainable collection Please contact me once this is done at [phone]
[2019-08-03] MEDS: LACTATED RINGERS SOLUTION 1,000 ML/1,000 ML INFUS.BAG IV SCH (13:58)
[2019-08-03] MEDS ORDERED: MIDAZOLAM HCL 2 MG/2 ML SINGLE DOSE VIAL ONE (17:23)
[2019-08-03] MEDS ORDERED: MIDAZOLAM HCL 2 MG/2 ML SINGLE DOSE VIAL IVPUSH ONE (17:25)
--- NOTE | 2019-08-03 18:48 | PN ---
Progress Note, Physician History of Present Illness: SEDATED ON VENTILATOR TEMPS DOWN AFEBRILE NECK SWELLING ABOUT THE SAME, SL LESS ERYTHEMA AT BASE OF NECK CT REVIEWED WITH RADIOLOGIST NO EVIDENCE OF ABSCESS OR JUGULAR VEIN THROMBOSIS - Current Medication List Current Medications: Active Medications Acetaminophen (Tylenol -) 650 mg PO Q6H PRN PRN Reason: FEVER Last Admin: 08/02/19 02:03 Dose: 650 mg Chlorhexidine Gluconate (Peridex -) 15 ml MM BID THU Last Admin: 08/03/19 09:04 Dose: 15 ml Propofol (Diprivan -) 1,000,000 mcg in 100 mls @ 2.667 mls/hr IVPB TITR THU; Protocol Last Admin: 08/03/19 12:50 Dose: 50 mcg/kg/min, 26.671 mls/hr Ceftriaxone Sodium 2 gm/ (Dextrose) 100 mls @ 100 mls/hr IVPB DAILY THU; Protocol Last Admin: 08/03/19 10:40 Dose: 100 mls/hr Metronidazole (Flagyl 500mg Premixed Ivpb -) 500 mg in 100 mls @ 100 mls/hr IVPB Q8H-IV THU Last Admin: 08/03/19 18:39 Dose: 100 mls/hr Vancomycin HCl (Vancomycin (Pre-Docked)) 1,000 mg in 250 mls @ 166.667 mls/hr IVPB Q12H THU; Protocol Last Admin: 08/03/19 10:34 Dose: 166.667 mls/hr Lactated Ringer's (Lactated Ringers Solution) 1,000 ml in 1,000 mls @ 125 mls/ hr IV ASDIR THU Last Admin: 08/03/19 13:58 Dose: 125 mls/hr Insulin Aspart (Novolog Vial Sliding Scale -) 1 vial SQ ACHS THU; Protocol Last Admin: 08/03/19 18:39 Dose: 4 unit - Objective Vital Signs: Vital Signs Temperature 97.5 F L 08/03/19 14:00 Pulse Rate 73 08/03/19 14:00 Respiratory Rate 14 08/03/19 16:04 Blood Pressure 109/76 08/03/19 14:00 O2 Sat by Pulse Oximetry (%) 100 08/03/19 09:00 Constitutional: Yes: No Distress Eyes: Yes: Conjunctiva Clear Neck: Yes: Other (+ SUBMANDIBULAR SWELLING) Cardiovascular: Yes: Regular Rate and Rhythm, S1, S2 Respiratory: Yes: Mechanically Ventilated Gastrointestinal: Yes: Soft. No: Tenderness Labs: CBC, BMP 08/03/19 06:50 08/03/19 06:50 INR, PTT INR 1.29 (0.83-1.09) H 08/02/19 10:00 Assessment/Plan RESP FAILURE CELLULITIS NECK / CHEST IDDM HIV+ AWAIT C/S CONTINUE EMPIRIC ANTIBIOTICS FOR REPEAT CT SCAN NECK
[2019-08-03] MEDS: FENTANYL INJECTION 500 MCG in DEXTROSE 5%-WATER - 90 ML IVPB SCH (22:31)
[2019-08-04] MEDS: LACTATED RINGERS SOLUTION 1,000 ML/1,000 ML INFUS.BAG IV SCH ×2 (01:36→13:51)
[2019-08-04] MEDS: PROPOFOL 1,000,000 MCG/100 ML VIAL IVPB SCH ×4 (01:38→23:15)
[2019-08-04] MEDS ORDERED: fentaNYL CITRATE 250 MCG/5 ML VIAL ONE ×3 (05:02→18:59)
[2019-08-04] MEDS: FENTANYL INJECTION 500 MCG in DEXTROSE 5%-WATER - 90 ML IVPB SCH (05:06)
[2019-08-04] MEDS: INSULIN SLIDING SCALE (NOVOLOG) 1 VIAL SQ SCH ×4 (06:36→21:39)
[2019-08-04 07:07] LABS: BASO % 0.3 % (0-2.0); EOS % 1.2 % (0-4.5); HEMATOCRIT 37.2 % (35.4-49); HEMOGLOBIN 12.2 GM/dL (11.7-16.9); LYMPH % 10.6 % (8-40); MCH 30.2 pg (25.7-33.7); MCHC 32.8 g/dl (32.0-35.9); MEAN CELL VOLUME 92.1 fl (80-96); MEAN PLT VOLUME 9.1 fl (7.5-11.1); MONO % 9.4 % (3.8-10.2); NEUT % 78.5 % (42.8-82.8); PLATELET COUNT 167 K/MM3 (134-434); RBC 4.04 M/mm3 (4.00-5.60); RDW 13.8 % (11.9-15.9); WHITE BLOOD COUNT 9.3 K/mm3 (4.0-10.0)
[2019-08-04 07:55] LABS: ALBUMIN 2.7 g/dl (3.4-5.0); BILIRUBIN,TOTAL 0.2 mg/dL (0.2-1); BLOOD UREA NITROGEN 19.3 mg/dL (7-18); CALCIUM 8.7 mg/dL (8.5-10.1); CREATININE 1.3 mg/dL (0.55-1.3); POTASSIUM 4.4 mmol/L (3.5-5.1); TOT PROT 6.4 g/dl (6.4-8.2)
[2019-08-04] MEDS ORDERED: PROPOFOL 2,000,000 MCG/200 ML VIAL ONE (08:36)
--- NOTE | 2019-08-04 08:48 | PN ---
Physical Exam: SUBJECTIVE: Patient seen and examined by the bedside. Intubated and sedated, minimally responsive to verbal/tactile stimulus. No acute events overnight. OBJECTIVE: Vital Signs Period Temp Pulse Resp BP Sys/Wheeler Pulse Ox Last 24 Hr 97.5 F-98.9 F 72-91 14-19 105-129/68-89 100-100 GENERAL: Intubated and sedated, minimally responsive to verbal/tactile stimulus HEAD: Normal with no signs of trauma. NECK: Submandibular, neck diffuse swelling. Erythema extending distally on the left anterior aspect of base of neck compared to yesterday LUNGS: Transmitted breath sounds B/L, no wheezes or crackles HEART: RRR, no murmurs or rubs ABDOMEN: Soft, nontender, not distended LOWER EXTREMITIES: 2+ pulses, warm, no edema NEUROLOGICAL: sedated PSYCHIATRIC: sedated Laboratory Results - last 24 hr 08/03/19 08/03/19 08/03/19 06:50 11:37 18:33 WBC 9.8 RBC 3.89 L Hgb 11.9 Hct 35.2 L MCV 90.4 MCH 30.6 MCHC 33.8 RDW 13.4 Plt Count 155 MPV 9.0 Absolute Neuts (auto) 8.4 H Neutrophils % 85.8 H Lymphocytes % 6.5 L D Monocytes % 7.4 Eosinophils % 0.1 D Basophils % 0.2 Nucleated RBC % 0 Sodium Potassium Chloride Carbon Dioxide Anion Gap BUN Creatinine Est GFR (CKD-EPI)AfAm Est GFR (CKD-EPI)NonAf POC Glucometer 233 233 Random Glucose Calcium Total Bilirubin AST ALT Alkaline Phosphatase Total Protein Albumin 08/03/19 08/04/19 08/04/19 21:44 01:43 05:30 WBC 9.3 RBC 4.04 Hgb 12.2 Hct 37.2 MCV 92.1 MCH 30.2 MCHC 32.8 RDW 13.8 Plt Count 167 MPV 9.1 Absolute Neuts (auto) 7.3 Neutrophils % 78.5 Lymphocytes % 10.6 D Monocytes % 9.4 Eosinophils % 1.2 D Basophils % 0.3 Nucleated RBC % 0 Sodium Potassium Chloride Carbon Dioxide Anion Gap BUN Creatinine Est GFR (CKD-EPI)AfAm Est GFR (CKD-EPI)NonAf POC Glucometer 207 201 Random Glucose Calcium Total Bilirubin AST ALT Alkaline Phosphatase Total Protein Albumin 08/04/19 08/04/19 05:30 06:24 WBC RBC Hgb Hct MCV MCH MCHC RDW Plt Count MPV Absolute Neuts (auto) Neutrophils % Lymphocytes % Monocytes % Eosinophils % Basophils % Nucleated RBC % Sodium 141 Potassium 4.4 Chloride 107 Carbon Dioxide 27 Anion Gap 6 L BUN 19.3 H Creatinine 1.3 Est GFR (CKD-EPI)AfAm 71.19 Est GFR (CKD-EPI)NonAf 61.43 POC Glucometer 188 Random Glucose 180 H Calcium 8.7 Total Bilirubin 0.2 AST 22 ALT 23 Alkaline Phosphatase 58 Total Protein 6.4 Albumin 2.7 L Active Medications Generic Name Dose Route Start Last Admin Trade Name Freq PRN Reason Stop Dose Admin Acetaminophen 650 mg 08/02/19 02:02 08/02/19 02:03 Tylenol - PO 650 mg Q6H PRN Administration FEVER Chlorhexidine Gluconate 15 ml 08/03/19 10:00 08/03/19 21:52 Peridex - MM 15 ml BID THU Administration Propofol 1,000,000 mcg in 100 mls @ 2.667 mls/hr 08/02/19 08:45 08/04/19 06: 44 Diprivan - IVPB 60 mcg/kg/min TITR THU 32.005 mls/hr Titration Protocol 5 MCG/KG/MIN Ceftriaxone Sodium 2 gm/ 100 mls @ 100 mls/hr 08/02/19 11:00 08/03/19 10:40 Dextrose IVPB 100 mls/hr DAILY THU Administration Protocol Metronidazole 500 mg in 100 mls @ 100 mls/hr 08/02/19 11:00 08/04/19 01:36 Flagyl 500mg Premixed Ivpb - IVPB 100 mls/hr Q8H-IV THU Administration Vancomycin HCl 1,000 mg in 250 mls @ 166.667 mls/hr 08/02/19 21:30 08/03/19 21:52 Vancomycin (Pre-Docked) IVPB 166.667 mls/hr Q12H THU Administration Protocol Lactated Ringer's 1,000 ml in 1,000 mls @ 125 mls/hr 08/03/19 12:45 08/04/19 01:36 Lactated Ringers Solution IV 125 mls/hr ASDIR THU Administration Fentanyl 500 mcg/ Dextrose 100 mls @ 0.2 mls/hr 08/03/19 22:15 08/04/19 06:44 IVPB 90 mcg/hr TITR THU 18 mls/hr Titration Protocol 1 MCG/HR Insulin Aspart 1 vial 08/02/19 23:00 08/04/19 06:36 Novolog Vial Sliding Scale - SQ 2 unit ACHS THU Administration Protocol ASSESSMENT/PLAN: 54M with PMH of DM, HIV (3m ago VL undetectable, CD > 400, DVT, PE eliquis, unstable angina, HTN, HLD. Presented to the ER for evaluation of warmth and swelling below his chin that started 3 days ago after sustaining a cut while shaving. Intubated for concern of airway compromise. #Neuro - Intubated, sedated with Propofol and Fentanyl #ENT - CT w contrast: Increased B/L SQ edema, no abscess - Decadron 10mg Q8H started - Dr. Bai: Will assess today - CT neck wo contrast: No abscess, sq edema seen B/L at ventral half of upper neck, submandibular glands slightly prominent B/L, possible sialoadenitis #ID - Cellulitis of neck/chest, will continue Ceftriaxone, Metronidazole, Vancomycin as per ID - Urine and Blood cx pending #GI - OG tube placed and enteral feeds started #Respiratory - Intubated, not a candidate for extubation at this time. Will perform daily cuff leak tests. - CXR 08/03: Improved aeration B/L #Endo - Novolog SS #DVT PE - Heparin 5000 SQ started, SCDs - Protonix 40mg IV started #FEN - OG tube placed, enteral feeds started - R/L started, switched from N/S due to Cl of 110 #Disposition - Monitor in ICU ATTENDING PHYSICIAN STATEMENT I saw and evaluated the patient. I reviewed the resident's note and discussed the case with the resident. I agree with the resident's findings and plan as documented. SUBJECTIVE: OBJECTIVE: ASSESSMENT AND PLAN:
--- NOTE | 2019-08-04 09:07 | PN ---
Progress Note, Physician Chief Complaint: Awake and responding History of Present Illness: On respirator CT showed laryngeal and pharyngeal edema - Current Medication List Current Medications: Active Medications Acetaminophen (Tylenol -) 650 mg PO Q6H PRN PRN Reason: FEVER Last Admin: 08/02/19 02:03 Dose: 650 mg Chlorhexidine Gluconate (Peridex -) 15 ml MM BID THU Last Admin: 08/03/19 21:52 Dose: 15 ml Propofol (Diprivan -) 1,000,000 mcg in 100 mls @ 2.667 mls/hr IVPB TITR THU; Protocol Last Titration: 08/04/19 06:44 Dose: 60 mcg/kg/min, 32.005 mls/hr Ceftriaxone Sodium 2 gm/ (Dextrose) 100 mls @ 100 mls/hr IVPB DAILY THU; Protocol Last Admin: 08/03/19 10:40 Dose: 100 mls/hr Metronidazole (Flagyl 500mg Premixed Ivpb -) 500 mg in 100 mls @ 100 mls/hr IVPB Q8H-IV THU Last Admin: 08/04/19 01:36 Dose: 100 mls/hr Vancomycin HCl (Vancomycin (Pre-Docked)) 1,000 mg in 250 mls @ 166.667 mls/hr IVPB Q12H THU; Protocol Last Admin: 08/03/19 21:52 Dose: 166.667 mls/hr Lactated Ringer's (Lactated Ringers Solution) 1,000 ml in 1,000 mls @ 125 mls/ hr IV ASDIR THU Last Admin: 08/04/19 01:36 Dose: 125 mls/hr Fentanyl 500 mcg/ Dextrose 100 mls @ 0.2 mls/hr IVPB TITR HTU; Protocol Last Titration: 08/04/19 06:44 Dose: 90 mcg/hr, 18 mls/hr Insulin Aspart (Novolog Vial Sliding Scale -) 1 vial SQ ACHS THU; Protocol Last Admin: 08/04/19 06:36 Dose: 2 unit - Objective Vital Signs: Vital Signs Temperature 98.9 F 08/04/19 06:00 Pulse Rate 85 08/04/19 08:00 Respiratory Rate 16 08/04/19 08:00 Blood Pressure 133/83 08/04/19 08:00 O2 Sat by Pulse Oximetry (%) 100 11/19/19 20:02 Constitutional: Yes: Mild Distress Eyes: Yes: WNL HENT: Yes: WNL Neck: Yes: WNL Cardiovascular: Yes: WNL Respiratory: Yes: Mechanically Ventilated Gastrointestinal: Yes: WNL ...Rectal Exam: Yes: Deferred Breast(s): Yes: WNL Musculoskeletal: Yes: WNL Edema: No Labs: CBC, BMP 08/04/19 05:30 08/04/19 05:30 INR, PTT INR 1.29 (0.83-1.09) H 08/02/19 10:00 Assessment/Plan Case discussed with resident
--- NOTE | 2019-08-04 10:10 | PN ---
Progress Note, Physician History of Present Illness: SEDATED ON VENTILATOR TEMPS DOWN AFEBRILE NECK SWELLING ABOUT THE SAME, SL LESS ERYTHEMA AT BASE OF NECK CT REVIEWED WITH RADIOLOGIST NO EVIDENCE OF ABSCESS OR JUGULAR VEIN THROMBOSIS REPEAT CT NO ABSCESS - Current Medication List Current Medications: Active Medications Acetaminophen (Tylenol -) 650 mg PO Q6H PRN PRN Reason: FEVER Last Admin: 08/02/19 02:03 Dose: 650 mg Chlorhexidine Gluconate (Peridex -) 15 ml MM BID THU Last Admin: 08/03/19 21:52 Dose: 15 ml Propofol (Diprivan -) 1,000,000 mcg in 100 mls @ 2.667 mls/hr IVPB TITR THU; Protocol Last Titration: 08/04/19 06:44 Dose: 60 mcg/kg/min, 32.005 mls/hr Ceftriaxone Sodium 2 gm/ (Dextrose) 100 mls @ 100 mls/hr IVPB DAILY THU; Protocol Last Admin: 08/03/19 10:40 Dose: 100 mls/hr Metronidazole (Flagyl 500mg Premixed Ivpb -) 500 mg in 100 mls @ 100 mls/hr IVPB Q8H-IV THU Last Admin: 08/04/19 01:36 Dose: 100 mls/hr Vancomycin HCl (Vancomycin (Pre-Docked)) 1,000 mg in 250 mls @ 166.667 mls/hr IVPB Q12H THU; Protocol Last Admin: 08/03/19 21:52 Dose: 166.667 mls/hr Lactated Ringer's (Lactated Ringers Solution) 1,000 ml in 1,000 mls @ 125 mls/ hr IV ASDIR THU Last Admin: 08/04/19 01:36 Dose: 125 mls/hr Fentanyl 500 mcg/ Dextrose 100 mls @ 0.2 mls/hr IVPB TITR THU; Protocol Last Titration: 08/04/19 06:44 Dose: 90 mcg/hr, 18 mls/hr Insulin Aspart (Novolog Vial Sliding Scale -) 1 vial SQ ACHS THU; Protocol Last Admin: 08/04/19 06:36 Dose: 2 unit - Objective Vital Signs: Vital Signs Temperature 98.9 F 08/04/19 06:00 Pulse Rate 85 08/04/19 08:00 Respiratory Rate 16 08/04/19 08:00 Blood Pressure 133/83 08/04/19 08:00 O2 Sat by Pulse Oximetry (%) 100 08/03/19 20:02 Constitutional: Yes: No Distress Eyes: Yes: Conjunctiva Clear Cardiovascular: Yes: Regular Rate and Rhythm, S2 Respiratory: Yes: CTA Bilaterally Gastrointestinal: Yes: Normal Bowel Sounds, Soft, Abdomen, Obese Edema: Yes Labs: CBC, BMP 08/04/19 05:30 08/04/19 05:30 INR, PTT INR 1.29 (0.83-1.09) H 08/02/19 10:00 Assessment/Plan RESP FAILURE CELLULITIS NECK / CHEST IDDM HIV+ CONTINUE EMPIRIC ANTIBIOTICS VENTILATOR SUPPORT
[2019-08-04] MEDS ORDERED: DEXTROSE 5%-WATER 100 ML IVPB ONE (10:37)
[2019-08-04] MEDS: CEFTRIAXONE 2 GM in DEXTROSE 5%-WATER 100 ML IVPB SCH (10:40)
[2019-08-04] MEDS: CHLORHEXIDINE GLUCONATE 0.12% 15ML CUP MM SCH ×2 (10:42→21:31)
[2019-08-04] MEDS: VANCOMYCIN 1 GRAM (PRE-DOCKED) 1,000 MG/250 ML BAG IVPB SCH ×2 (11:25→21:12)
[2019-08-04] MEDS ORDERED: PT OWN MED DRAWER 7, Y5N ONE (11:28)
--- NOTE | 2019-08-04 12:36 | PN ---
Teaching Attending Note Name of Resident: Mansa Lr ATTENDING PHYSICIAN STATEMENT I saw and evaluated the patient. I reviewed the resident's note and discussed the case with the resident. I agree with the resident's findings and plan as documented. SUBJECTIVE: Pt seen and examined in the ICU. Remains intubated, sedated. Repeat CT neck showing increased subcutaneous edema, no evidence of abscess. OBJECTIVE: Vital Signs Period Temp Pulse Resp BP Sys/Wheeler Pulse Ox Last 24 Hr 97.5 F-99.7 F 72-91 07-03 106-133/68-89 94-100 Intake & Output 08/01/19 08/02/19 08/03/19 08/04/19 23:59 23:59 23:59 23:59 Intake Total 0 4293 2867 Output Total 2500 2200 900 Balance -2500 2093 1967 Weight 88.904 kg 91.6 kg 91.172 kg Gen: intubated, sedated Chest/Neck: blanching erythema Heart: RRR Lung: decreased breath sounds at the bases Abd: soft, nontender Ext: no edema CBC, BMP 08/04/19 05:30 08/04/19 05:30 Active Medications Acetaminophen (Tylenol -) 650 mg PO Q6H PRN PRN Reason: FEVER Last Admin: 08/02/19 02:03 Dose: 650 mg Chlorhexidine Gluconate (Peridex -) 15 ml MM BID THU Last Admin: 08/04/19 10:42 Dose: 15 ml Dexamethasone Sodium Phosphate (Decadron Injection -) 10 mg IVPUSH Q8H-IV THU Heparin Sodium (Porcine) (Heparin -) 5,000 unit SQ TID THU Propofol (Diprivan -) 1,000,000 mcg in 100 mls @ 2.667 mls/hr IVPB TITR THU; Protocol Last Titration: 08/04/19 06:44 Dose: 60 mcg/kg/min, 32.005 mls/hr Ceftriaxone Sodium 2 gm/ (Dextrose) 100 mls @ 100 mls/hr IVPB DAILY THU; Protocol Last Admin: 08/04/19 10:40 Dose: 100 mls/hr Metronidazole (Flagyl 500mg Premixed Ivpb -) 500 mg in 100 mls @ 100 mls/hr IVPB Q8H-IV THU Last Admin: 08/04/19 10:41 Dose: 100 mls/hr Vancomycin HCl (Vancomycin (Pre-Docked)) 1,000 mg in 250 mls @ 166.667 mls/hr IVPB Q12H THU; Protocol Last Admin: 08/03/19 21:52 Dose: 166.667 mls/hr Lactated Ringer's (Lactated Ringers Solution) 1,000 ml in 1,000 mls @ 125 mls/ hr IV ASDIR THU Last Admin: 08/04/19 01:36 Dose: 125 mls/hr Fentanyl 500 mcg/ Dextrose 100 mls @ 0.2 mls/hr IVPB TITR THU; Protocol Last Titration: 08/04/19 06:44 Dose: 90 mcg/hr, 18 mls/hr Insulin Aspart (Novolog Vial Sliding Scale -) 1 vial SQ ACHS THU; Protocol Last Admin: 08/04/19 06:36 Dose: 2 unit Pantoprazole Sodium (Protonix Iv) 40 mg IVPUSH DAILY THU ASSESSMENT AND PLAN: Acute Respiratory Failure Chest/Neck Cellulitis HIV h/o PE/DVT HTN Hyperlipidemia DM - continue antibiotics - f/u cultures - start decadron - sedate for vent synchrony - daily checks for cuff leak - glucose control while on systemic steroids - not a candidate for weaning at this time - start enteral feeds - DVT/GI prophylaxis - continue ICU monitoring critical care time spent in reviewing chart, evaluating patient and formulating plan 35 min
[2019-08-04] MEDS ORDERED: MIDAZOLAM HCL 5 MG/1 ML Single Dose Vial IVPUSH ONE (12:38)
[2019-08-04] MEDS: PANTOPRAZOLE SODIUM 40 MG VIAL IVPUSH SCH (12:45)
[2019-08-04] MEDS: DEXAMETHASONE SOD PHOSPHATE 10 MG/1 ML VIAL IVPUSH SCH ×2 (13:13→19:08)
[2019-08-04] MEDS: HEPARIN NA (PORCINE) 5,000 UNITS/ML 1ML VIAL SQ SCH ×2 (13:14→21:31)
--- NOTE | 2019-08-04 18:03 | PN ---
Progress Note (short form) - Note Progress Note: ENT AVSS CT neck with contrast showed no drainable collections. WBC is normal. P/Slightly less swelling and redness of the lower neck/upper chest Otherwise unchanged Imp: submandibular cellulitis Recommend continue present medical management, and reconsult if worsens No surgical indication at this time
[2019-08-05] MEDS: FENTANYL INJECTION 500 MCG in DEXTROSE 5%-WATER - 90 ML IVPB SCH ×3 (01:06→21:22)
[2019-08-05] MEDS: DEXAMETHASONE SOD PHOSPHATE 10 MG/1 ML VIAL IVPUSH SCH ×3 (01:17→17:00)
[2019-08-05] MEDS ORDERED: fentaNYL CITRATE 250 MCG/5 ML VIAL ONE ×2 (02:41→09:24)
[2019-08-05] MEDS: LACTATED RINGERS SOLUTION 1,000 ML/1,000 ML INFUS.BAG IV SCH ×2 (03:19→21:23)
[2019-08-05] MEDS: PROPOFOL 1,000,000 MCG/100 ML VIAL IVPB SCH ×2 (04:12→09:01)
[2019-08-05] MEDS: HEPARIN NA (PORCINE) 5,000 UNITS/ML 1ML VIAL SQ SCH ×3 (05:54→21:20)
[2019-08-05] MEDS: INSULIN SLIDING SCALE (NOVOLOG) 1 VIAL SQ SCH ×4 (06:40→21:21)
[2019-08-05 07:07] LABS: BASO % 0.2 % (0-2.0); EOS % 0.1 % (0-4.5); HEMOGLOBIN 12.2 GM/dL (11.7-16.9); LYMPH % 11.2 % (8-40); MCH 30.7 pg (25.7-33.7); MCHC 33.9 g/dl (32.0-35.9); MEAN CELL VOLUME 90.6 fl (80-96); MEAN PLT VOLUME 9.1 fl (7.5-11.1); MONO % 2.2 % (3.8-10.2); NEUT % 86.3 % (42.8-82.8); PLATELET COUNT 168 K/MM3 (134-434); RBC 3.97 M/mm3 (4.00-5.60); RDW 13.7 % (11.9-15.9); WHITE BLOOD COUNT 6.1 K/mm3 (4.0-10.0)
[2019-08-05 07:15] LABS: ALBUMIN 2.7 g/dl (3.4-5.0); BILIRUBIN,TOTAL 0.3 mg/dL (0.2-1); BLOOD UREA NITROGEN 19.5 mg/dL (7-18); CALCIUM 8.9 mg/dL (8.5-10.1); CREATININE 1.1 mg/dL (0.55-1.3); MAGNESIUM 2.5 mg/dL (1.8-2.4); PHOSPHOROUS 4.6 mg/dL (2.5-4.9); POTASSIUM 4.9 mmol/L (3.5-5.1); TOT PROT 6.4 g/dl (6.4-8.2)
--- NOTE | 2019-08-05 09:12 | PN ---
Progress Note, Physician Chief Complaint: On respirator History of Present Illness: Neck swelling better - Current Medication List Current Medications: Active Medications Acetaminophen (Tylenol -) 650 mg PO Q6H PRN PRN Reason: FEVER Last Admin: 08/02/19 02:03 Dose: 650 mg Chlorhexidine Gluconate (Peridex -) 15 ml MM BID THU Last Admin: 08/04/19 21:31 Dose: 15 ml Dexamethasone Sodium Phosphate (Decadron Injection -) 10 mg IVPUSH Q8H-IV THU Last Admin: 08/05/19 01:17 Dose: 10 mg Heparin Sodium (Porcine) (Heparin -) 5,000 unit SQ TID THU Last Admin: 08/05/19 05:54 Dose: 5,000 unit Propofol (Diprivan -) 1,000,000 mcg in 100 mls @ 2.667 mls/hr IVPB TITR THU; Protocol Last Admin: 08/05/19 09:01 Dose: 40 mcg/kg/min, 21.337 mls/hr Ceftriaxone Sodium 2 gm/ (Dextrose) 100 mls @ 100 mls/hr IVPB DAILY THU; Protocol Last Admin: 08/04/19 10:40 Dose: 100 mls/hr Metronidazole (Flagyl 500mg Premixed Ivpb -) 500 mg in 100 mls @ 100 mls/hr IVPB Q8H-IV THU Last Admin: 08/05/19 01:17 Dose: 100 mls/hr Vancomycin HCl (Vancomycin (Pre-Docked)) 1,000 mg in 250 mls @ 166.667 mls/hr IVPB Q12H THU; Protocol Last Admin: 08/04/19 21:12 Dose: 166.667 mls/hr Lactated Ringer's (Lactated Ringers Solution) 1,000 ml in 1,000 mls @ 125 mls/ hr IV ASDIR THU Last Admin: 08/05/19 03:19 Dose: 125 mls/hr Fentanyl 500 mcg/ Dextrose 100 mls @ 0.2 mls/hr IVPB TITR THU; Protocol Last Admin: 08/05/19 03:19 Dose: 75 mcg/hr, 15 mls/hr Insulin Aspart (Novolog Vial Sliding Scale -) 1 vial SQ ACHS THU; Protocol Last Admin: 08/05/19 06:40 Dose: 6 unit Pantoprazole Sodium (Protonix Iv) 40 mg IVPUSH DAILY [facility] Last Admin: 08/04/19 12:45 Dose: 40 mg - Objective Vital Signs: Vital Signs Temperature 98.4 F 08/05/19 06:00 Pulse Rate 74 08/05/19 08:00 Respiratory Rate 08/05/19 08:58 Blood Pressure 139/83 08/05/19 08:00 O2 Sat by Pulse Oximetry (%) 99 08/05/19 08:58 Eyes: Yes: WNL Neck: Yes: Supple Cardiovascular: Yes: WNL Respiratory: Yes: Mechanically Ventilated ...Rectal Exam: Yes: Deferred Genitourinary: Yes: WNL Musculoskeletal: Yes: WNL Neurological: Yes: Other (sedated) Labs: CBC, BMP 08/05/19 05:40 08/05/19 05:40 INR, PTT INR 1.29 (0.83-1.09) H 08/02/19 10:00 Assessment/Plan May extubate
[2019-08-05] MEDS ORDERED: DEXTROSE 5%-WATER 100 ML IVPB ONE (09:26)
[2019-08-05] MEDS: CEFTRIAXONE 2 GM in DEXTROSE 5%-WATER 100 ML IVPB SCH (09:28)
[2019-08-05] MEDS: VANCOMYCIN 1 GRAM (PRE-DOCKED) 1,000 MG/250 ML BAG IVPB SCH (09:31)
[2019-08-05] MEDS: CHLORHEXIDINE GLUCONATE 0.12% 15ML CUP MM SCH ×2 (09:32→21:20)
[2019-08-05] MEDS: PANTOPRAZOLE SODIUM 40 MG VIAL IVPUSH SCH (09:33)
--- NOTE | 2019-08-05 12:16 | PN ---
Teaching Attending Note Name of Resident: Gregory Herbert ATTENDING PHYSICIAN STATEMENT I saw and evaluated the patient. I reviewed the resident's note and discussed the case with the resident. I agree with the resident's findings and plan as documented. SUBJECTIVE: Patient seen and examined in the ICU. Remains intubated, sedation is off and he is able to follow simple commands. No pressors. ENT follow up noted. No intervention needed. Intake & Output 08/02/19 08/03/19 08/04/19 08/05/19 23:59 23:59 23:59 23:59 Intake Total 0 4293 4937 2254 Output Total 2500 2200 1600 2400 Balance -2500 2093 3337 -146 Weight 201 lb 15.095 oz 201 lb 205 lb 11.2 oz Last Vital Signs Temp Pulse Resp BP Pulse Ox 98.6 F 85 15 144/89 100 08/05/19 10:00 08/05/19 11:45 08/05/19 10:00 08/05/19 10:00 08/05/19 11:45 Active Medications Acetaminophen (Tylenol -) 650 mg PO Q6H PRN PRN Reason: FEVER Last Admin: 08/02/19 02:03 Dose: 650 mg Chlorhexidine Gluconate (Peridex -) 15 ml MM BID THU Last Admin: 08/05/19 09:32 Dose: 15 ml Dexamethasone Sodium Phosphate (Decadron Injection -) 10 mg IVPUSH Q8H-IV THU Stop: 08/06/19 10:00 Last Admin: 08/05/19 09:31 Dose: 10 mg Heparin Sodium (Porcine) (Heparin -) 5,000 unit SQ TID THU Last Admin: 08/05/19 05:54 Dose: 5,000 unit Propofol (Diprivan -) 1,000,000 mcg in 100 mls @ 2.667 mls/hr IVPB TITR THU; Protocol Last Titration: 08/05/19 09:45 Dose: 0 mcg/kg/min, 0 mls/hr Ceftriaxone Sodium 2 gm/ (Dextrose) 100 mls @ 100 mls/hr IVPB DAILY THU; Protocol Last Admin: 08/05/19 09:28 Dose: 100 mls/hr Metronidazole (Flagyl 500mg Premixed Ivpb -) 500 mg in 100 mls @ 100 mls/hr IVPB Q8H-IV THU Last Admin: 08/05/19 09:32 Dose: 100 mls/hr Vancomycin HCl (Vancomycin (Pre-Docked)) 1,000 mg in 250 mls @ 166.667 mls/hr IVPB Q12H THU; Protocol Last Admin: 08/05/19 09:31 Dose: 166.667 mls/hr Lactated Ringer's (Lactated Ringers Solution) 1,000 ml in 1,000 mls @ 125 mls/ hr IV ASDIR THU Last Admin: 08/05/19 03:19 Dose: 125 mls/hr Fentanyl 500 mcg/ Dextrose 100 mls @ 0.2 mls/hr IVPB TITR THU; Protocol Last Titration: 08/05/19 09:45 Dose: 0 mcg/hr, 0 mls/hr Insulin Aspart (Novolog Vial Sliding Scale -) 1 vial SQ ACHS THU; Protocol Last Admin: 08/05/19 12:06 Dose: 6 unit Pantoprazole Sodium (Protonix Iv) 40 mg IVPUSH DAILY THU Last Admin: 08/05/19 09:33 Dose: 40 mg Gen: Intubated, arousable Chest/Neck: improving erythema Heart: RRR Lung: decreased breath sounds at the bases Abd: soft, nontender Ext: no edema Laboratory Results - last 24 hr 08/04/19 08/04/19 08/04/19 13:06 17:22 21:29 WBC RBC Hgb Hct MCV MCH MCHC RDW Plt Count MPV Absolute Neuts (auto) Neutrophils % Lymphocytes % Monocytes % Eosinophils % Basophils % Nucleated RBC % Sodium Potassium Chloride Carbon Dioxide Anion Gap BUN Creatinine Est GFR (CKD-EPI)AfAm Est GFR (CKD-EPI)NonAf POC Glucometer 195 195 248 Random Glucose Calcium Phosphorus Magnesium Total Bilirubin AST ALT Alkaline Phosphatase Total Protein Albumin 08/05/19 08/05/19 08/05/19 05:40 05:40 05:55 WBC 6.1 RBC 3.97 L Hgb 12.2 Hct 36.0 MCV 90.6 MCH 30.7 MCHC 33.9 RDW 13.7 Plt Count 168 MPV 9.1 Absolute Neuts (auto) 5.3 Neutrophils % 86.3 H Lymphocytes % 11.2 Monocytes % 2.2 L Eosinophils % 0.1 D Basophils % 0.2 Nucleated RBC % 0 Sodium 140 Potassium 4.9 Chloride 106 Carbon Dioxide 29 Anion Gap 4 L BUN 19.5 H Creatinine 1.1 Est GFR (CKD-EPI)AfAm 87.13 Est GFR (CKD-EPI)NonAf 75.17 POC Glucometer 281 Random Glucose 285 H Calcium 8.9 Phosphorus 4.6 Magnesium 2.5 H Total Bilirubin 0.3 AST 15 ALT 24 Alkaline Phosphatase 60 Total Protein 6.4 Albumin 2.7 L 08/05/19 11:59 WBC RBC Hgb Hct MCV MCH MCHC RDW Plt Count MPV Absolute Neuts (auto) Neutrophils % Lymphocytes % Monocytes % Eosinophils % Basophils % Nucleated RBC % Sodium Potassium Chloride Carbon Dioxide Anion Gap BUN Creatinine Est GFR (CKD-EPI)AfAm Est GFR (CKD-EPI)NonAf POC Glucometer 285 Random Glucose Calcium Phosphorus Magnesium Total Bilirubin AST ALT Alkaline Phosphatase Total Protein Albumin ASSESSMENT AND PLAN: Acute Respiratory Failure Chest/Neck Cellulitis HIV h/o PE/DVT HTN Hyperlipidemia DM - Wean trials as tolerated with hopes of extubation - continue antibiotics - Decadron - glucose control while on systemic steroids - DVT/GI prophylaxis - Requires continued ICU monitoring Dr Live Critical care time spent in reviewing chart, evaluating patient and formulating plan 35 min
--- NOTE | 2019-08-05 12:37 | PN ---
Physical Exam: SUBJECTIVE: Patient seen and examined. This morning patient was intubated but off sedation. Groggy but was able to follow commands and respond to questions by nodding his head. Patient was subsequently extubated after his mental status improved and his respiratory status was deemed appropriate. OBJECTIVE: Vital Signs Period Temp Pulse Resp BP Sys/Wheeler Pulse Ox Last 24 Hr 98.1 F-98.6 F 63-85 14-19 119-173/71-95 95-100 GENERAL: groggy. able to answer questions, follow commands. HEAD: Normal with no signs of trauma. EYES: PERRL, EOMI, no scleral icterus. ENT: dry mucous membranes NECK: Trachea midline, full range of motion, supple. LUNGS: CTA bilaterally, no rales, rhonchi, or wheezing, no accessory muscle use HEART: RRR, normal S1,S2. no murmur noted ABDOMEN: soft, nontender, non distended, not tympanic EXTREMITIES: 2+ pulses, warm, well-perfused, no edema. NEUROLOGICAL: answering questions, following commands, normal speech Laboratory Results - last 24 hr 08/04/19 08/04/19 08/04/19 13:06 17:22 21:29 WBC RBC Hgb Hct MCV MCH MCHC RDW Plt Count MPV Absolute Neuts (auto) Neutrophils % Lymphocytes % Monocytes % Eosinophils % Basophils % Nucleated RBC % Sodium Potassium Chloride Carbon Dioxide Anion Gap BUN Creatinine Est GFR (CKD-EPI)AfAm Est GFR (CKD-EPI)NonAf POC Glucometer 195 195 248 Random Glucose Calcium Phosphorus Magnesium Total Bilirubin AST ALT Alkaline Phosphatase Total Protein Albumin 08/05/19 08/05/19 08/05/19 05:40 05:40 05:55 WBC 6.1 RBC 3.97 L Hgb 12.2 Hct 36.0 MCV 90.6 MCH 30.7 MCHC 33.9 RDW 13.7 Plt Count 168 MPV 9.1 Absolute Neuts (auto) 5.3 Neutrophils % 86.3 H Lymphocytes % 11.2 Monocytes % 2.2 L Eosinophils % 0.1 D Basophils % 0.2 Nucleated RBC % 0 Sodium 140 Potassium 4.9 Chloride 106 Carbon Dioxide 29 Anion Gap 4 L BUN 19.5 H Creatinine 1.1 Est GFR (CKD-EPI)AfAm 87.13 Est GFR (CKD-EPI)NonAf 75.17 POC Glucometer 281 Random Glucose 285 H Calcium 8.9 Phosphorus 4.6 Magnesium 2.5 H Total Bilirubin 0.3 AST 15 ALT 24 Alkaline Phosphatase 60 Total Protein 6.4 Albumin 2.7 L 08/05/19 11:59 WBC RBC Hgb Hct MCV MCH MCHC RDW Plt Count MPV Absolute Neuts (auto) Neutrophils % Lymphocytes % Monocytes % Eosinophils % Basophils % Nucleated RBC % Sodium Potassium Chloride Carbon Dioxide Anion Gap BUN Creatinine Est GFR (CKD-EPI)AfAm Est GFR (CKD-EPI)NonAf POC Glucometer 285 Random Glucose Calcium Phosphorus Magnesium Total Bilirubin AST ALT Alkaline Phosphatase Total Protein Albumin Active Medications Generic Name Dose Route Start Last Admin Trade Name Freq PRN Reason Stop Dose Admin Acetaminophen 650 mg 08/02/19 02:02 08/02/19 02:03 Tylenol - PO 650 mg Q6H PRN Administration FEVER Chlorhexidine Gluconate 15 ml 08/03/19 10:00 08/05/19 09:32 Peridex - MM 15 ml BID THU Administration Dexamethasone Sodium Phosphate 10 mg 08/04/19 11:45 08/05/19 09:31 Decadron Injection - IVPUSH 08/06/19 10:00 10 mg Q8H-IV THU Administration Heparin Sodium (Porcine) 5,000 unit 08/04/19 14:00 08/05/19 05:54 Heparin - SQ 5,000 unit TID THU Administration Propofol 1,000,000 mcg in 100 mls @ 2.667 mls/hr 08/02/19 08:45 08/05/19 09: 45 Diprivan - IVPB 0 mcg/kg/min TITR THU 0 mls/hr Titration Protocol 5 MCG/KG/MIN Ceftriaxone Sodium 2 gm/ 100 mls @ 100 mls/hr 08/02/19 11:00 08/05/19 09:28 Dextrose IVPB 100 mls/hr DAILY THU Administration Protocol Metronidazole 500 mg in 100 mls @ 100 mls/hr 08/02/19 11:00 08/05/19 09:32 Flagyl 500mg Premixed Ivpb - IVPB 100 mls/hr Q8H-IV THU Administration Vancomycin HCl 1,000 mg in 250 mls @ 166.667 mls/hr 08/02/19 21:30 08/05/19 09:31 Vancomycin (Pre-Docked) IVPB 166.667 mls/hr Q12H THU Administration Protocol Lactated Ringer's 1,000 ml in 1,000 mls @ 125 mls/hr 08/03/19 12:45 08/05/19 03:19 Lactated Ringers Solution IV 125 mls/hr ASDIR THU Administration Fentanyl 500 mcg/ Dextrose 100 mls @ 0.2 mls/hr 08/03/19 22:15 08/05/19 09:45 IVPB 0 mcg/hr TITR THU 0 mls/hr Titration Protocol 1 MCG/HR Insulin Aspart 1 vial 08/02/19 23:00 08/05/19 12:06 Novolog Vial Sliding Scale - SQ 6 unit ACHS THU Administration Protocol Pantoprazole Sodium 40 mg 08/04/19 11:45 08/05/19 09:33 Protonix Iv IVPUSH 40 mg DAILY THU Administration ASSESSMENT/PLAN: 54M with PMH of DM, HIV (3m ago VL undetectable, CD > 400, DVT, PE eliquis, unstable angina, HTN, HLD. Presented to the ER for evaluation of warmth and swelling below his chin that started 3 days ago after sustaining a cut while shaving. Extubated on 08/05. #Neuro - Extubated on 08/05 - mental status post extubation is mildly confused, likely 2/2 sedation. continue to monitor #Cardio - Hypertensive s/p extubation - On Losartan at home - Labetalol 10mg IV push x2 ordered - monitor BP - started on home Losartan dose #ENT - CT w/contrast: Increased B/L SQ edema, no abscess - CT neck w/o contrast: No abscess, sq edema seen B/L at ventral half of upper neck, submandibular glands slightly prominent B/L, possible sialoadenitis - Continue Decadron 10mg Q8H. may D/C tomorrow - Patient assessed by Dr. Bai. Recommended to continue present medical management, no need for surgical intervention needed at this time. Reconsult if worsens. #ID - Cellulitis of neck/chest, will continue Ceftriaxone, Metronidazole, Vancomycin as per ID - Urine and Blood cx negative for growth - started home anti-HIV meds #GI - Will need speech/swallow eval before starting PO feeds. - No active issues #Respiratory - Extubated on 08/05. Placed on venti mask. Can change to nasal canula when appropriate. - Maintain spO2 >90% - CXR 08/05: congestive changes with prominent mediastinum #Endo - Novolog SS - BGM #DVT PE - Heparin - SCDs - Protonix #FEN - Cleared for PO diet after speech/swallow eval. Will start with full liquid diet. advance as appropriate. - LR @125mls/hr #Disposition - Continue ICU monitoring Visit type - Emergency Visit Emergency Visit: Yes ED Registration Date: 08/01/19 Care time: The patient presented to the Emergency Department on the above date and was hospitalized for further evaluation of their emergent condition. - New Patient This patient is new to me today: Yes Date on this admission: 08/05/19 - Critical Care Critical Care patient: Yes Total Critical Care Time (in minutes): 36 Critical Care Statement: The care of this patient involved high complexity decision making to prevent further life threatening deterioration of the patient 's condition and/or to evaluate & treat vital organ system(s) failure or risk of failure. ATTENDING PHYSICIAN STATEMENT I saw and evaluated the patient. I reviewed the resident's note and discussed the case with the resident. I agree with the resident's findings and plan as documented. SUBJECTIVE: OBJECTIVE: ASSESSMENT AND PLAN:
[2019-08-05] MEDS ORDERED: LABETALOL HCL 5 MG/1 ML (100MG/20 ML VIAL) IVPUSH ONE ×2 (12:41→13:52)
--- NOTE | 2019-08-05 14:14 | CONSULT ---
Admitting History and Physical - Primary Care Physician PCP: Fede Lomeli - Admission History of Present Illness: 54M with PMH of DM, HIV (3m ago VL undetectable, CD > 400, DVT, PE eliquis, unstable angina, HTN, HLD. Presented to the ER for evaluation of warmth and swelling below his chin that started 3 days ago after sustaining a cut while shaving. Rapid progression of swelling in ER led to intubation On broad spectrum IV abx. Extubated today at 11:45 am Initially pt was firing same questions repeatedly, "when can i go home? I need to go home. I need to call my work" Errors with orientation questions, perseverastive, not listening to questions. Over time of the evaluation, with review of each question, pt slowed down, attended to task better, responded more appropriately. History Source: Medical Record Limitations to Obtaining History: Clinical Condition - Past Medical History Cardiovascular: Yes: Deep Vein Thrombosis, HTN, Hyperlipdemia Pulmonary: Yes: Pulmonary Embolus Renal/: Yes: Renal Inusuff Infectious Disease: Yes: HIV Endocrine: Yes: Diabetes Mellitus - Smoking History Smoking history: Never smoked Have you smoked in the past 12 months: No - Alcohol/Substance Use Hx Alcohol Use: No - Social History Occupation: Dietary at [employer] History - Admission Reason For Visit: CELLULITIS,HYPERGLYCEMIA WITH KETOSIS - Diagnostics CT Scan: Report Reviewed (CT neck showing increased subcutaneous edema, no evidence of abscess.) - General Mental Status: Awake and Alert, Able to Follow Commands (needed repetition initially, but improved), Intermittently Confused Attention: Distractible, Mild Impairment Ability to Follow Directions: Fair Head/Neck Control: Good - Hearing Hearing: Functional Speech Evaluation - Communication Primary Language: SERBIAN Communication: Yes: Within Normal Limits Oral Expression Ability: Yes: No Impairment - Speech Production Able to Make Needs Known: Yes: WNL Intelligibility: Yes: WNL - Speech Characteristics Voice Loudness: Normal Voice Pitch: Yes: Normal Voice Phonatory-based Quality: Yes: Normal Speech Pattern: Normal Speech Clarity: < 100% Nasal Resonance: Normal Articulation: Yes: Precise Rate of Speech: Intact - Language/Auditory Comprehension Follows: Yes: 1 Stage Simple Commands Observation: Able to respond to yes/no queries: Yes, Comprehends Conversational Speech: Yes, Benefits from Slow Speech: Yes, Benefits from Repetiton: Yes, Benefits from Increased Volume of Speech: Yes - Language/Verbal Expression Able to Communicate Wants and Needs: Yes: WNL - Swallow Evaluation/Bedside Assessment Current Nutritional Intake: NPO Oral Secretions: Yes: WFL Dentition: Yes: Adequate Facial Symmetry at Rest: Symmetrical Facial Symmetry on Retraction: Symmetrical Facial Movement: Controlled Sensation: Normal Against Resistance Opening: Normal Against Resistance Closing: Normal Pucker Lips: Normal Smile: Normal Lingual Movement: Normal, Symmetric Lingual Speed of Movement: Normal Lingual Movement Strgth Against Opposition: Normal Lingual Movement Characteristics: Normal Velopharyngeal Movement: Normal Laryngeal Elevation: WFL Laryngeal Movement: Able to Palpate Bolus Size: WFL Labial Seal: WFL Oral Prep Time: WFL A-P Transit: WFL Timing of Swallow: WFL Coughing/Throat Clear: No Change in Voice: No Recommendations - Speech Evaluation, Impression/Plan Impression: Distractible, disoriented and perseverative initially.Improved during sessio. Euphonic voice. Brisk swallow. Denies odynophagia. Swallow seems brisk, however, vomited bile an hour ago. Start PO slowly, observe tolerance. - Dysphagia Impressions/Plan Swallowing Skills: [facility] Dysphagia Impressions: No Impairment *Silent aspiration: cannot be R/O at bedside Dysphagia Treatment Plan: Small Bites, Trial Feedings, Safe Rate, 1/2 tsp. at a time, Elevate HOB during feed - Recommendations Diet Consistency: Other (start full fluids, observe tolerance, upgrade as tolerated.)
[2019-08-05] MEDS: LOSARTAN POTASSIUM 50 MG TABLET (FP) PO SCH (15:38)
[2019-08-05] MEDS ORDERED: ONDANSETRON 4 MG/2 ML VIAL IVPUSH ONE (15:40)
[2019-08-05] MEDS ORDERED: LACTATED RINGERS SOLUTION 1,000 ML/1,000 ML INFUS.BAG IV SCH (15:41)
[2019-08-05 15:58] VITALS: BMI 29.4
--- NOTE | 2019-08-05 16:45 | PN ---
Progress Note, Physician History of Present Illness: EXTUBATED AFEBRILE NECK SWELLING IMPROVED LESS ERYTHEMA AT BASE OF NECK CT NO EVIDENCE OF ABSCESS OR JUGULAR VEIN THROMBOSIS - Current Medication List Current Medications: Active Medications Abacavir/Dolutegravir/Lamivudine (Triumeq (Non-Formulary)) 1 each PO DAILY THU Acetaminophen (Tylenol -) 650 mg PO Q6H PRN PRN Reason: FEVER Last Admin: 08/02/19 02:03 Dose: 650 mg Chlorhexidine Gluconate (Peridex -) 15 ml MM BID THU Last Admin: 08/05/19 09:32 Dose: 15 ml Dexamethasone Sodium Phosphate (Decadron Injection -) 10 mg IVPUSH Q8H-IV THU Stop: 08/06/19 10:00 Last Admin: 08/05/19 09:31 Dose: 10 mg Heparin Sodium (Porcine) (Heparin -) 5,000 unit SQ TID THU Last Admin: 08/05/19 13:22 Dose: 5,000 unit Propofol (Diprivan -) 1,000,000 mcg in 100 mls @ 2.667 mls/hr IVPB TITR THU; Protocol Last Titration: 08/05/19 09:45 Dose: 0 mcg/kg/min, 0 mls/hr Ceftriaxone Sodium 2 gm/ (Dextrose) 100 mls @ 100 mls/hr IVPB DAILY THU; Protocol Last Admin: 08/05/19 09:28 Dose: 100 mls/hr Metronidazole (Flagyl 500mg Premixed Ivpb -) 500 mg in 100 mls @ 100 mls/hr IVPB Q8H-IV THU Last Admin: 08/05/19 09:32 Dose: 100 mls/hr Vancomycin HCl (Vancomycin (Pre-Docked)) 1,000 mg in 250 mls @ 166.667 mls/hr IVPB Q12H THU; Protocol Last Admin: 08/05/19 09:31 Dose: 166.667 mls/hr Fentanyl 500 mcg/ Dextrose 100 mls @ 0.2 mls/hr IVPB TITR THU; Protocol Last Titration: 08/05/19 09:45 Dose: 0 mcg/hr, 0 mls/hr Lactated Ringer's (Lactated Ringers Solution) 1,000 ml in 1,000 mls @ 42 mls/ hr IV ASDIR THU Stop: 08/06/19 15:30 Last Admin: 08/05/19 15:53 Dose: 42 mls/hr Insulin Aspart (Novolog Vial Sliding Scale -) 1 vial SQ ACHS [facility]; Protocol Last Admin: 08/05/19 16:00 Dose: 6 unit Losartan Potassium (Cozaar -) 50 mg PO DAILY [facility] Last Admin: 08/05/19 15:38 Dose: 50 mg - Objective Vital Signs: Vital Signs Temperature 98.4 F 08/05/19 15:00 Pulse Rate 89 08/05/19 15:00 Respiratory Rate 18 08/05/19 15:00 Blood Pressure 154/86 08/05/19 15:00 O2 Sat by Pulse Oximetry (%) 100 08/05/19 11:45 Constitutional: Yes: No Distress Neck: Yes: Other (DECREASED NECK SWELLING) Cardiovascular: Yes: Regular Rate and Rhythm, S1, S2 Respiratory: Yes: CTA Bilaterally Gastrointestinal: Yes: Normal Bowel Sounds, Soft. No: Tenderness Edema: No Labs: CBC, BMP 08/05/19 05:40 08/05/19 05:40 INR, PTT INR 1.29 (0.83-1.09) H 08/02/19 10:00 Assessment/Plan RESP FAILURE S/P EXTUBATION CELLULITIS NECK / CHEST IMPROVED IDDM HIV+ CONTINUE EMPIRIC ANTIBIOTICS
[2019-08-05] MEDS: ABACAVIR/DOLUTEGRAVIR/LAMIVUDI (TRIUMEQ) TABLET -NF PO SCH (17:00)
[2019-08-06] MEDS: DEXAMETHASONE SOD PHOSPHATE 10 MG/1 ML VIAL IVPUSH SCH ×2 (02:48→09:34)
[2019-08-06] MEDS: HEPARIN NA (PORCINE) 5,000 UNITS/ML 1ML VIAL SQ SCH ×3 (07:31→21:41)
[2019-08-06] MEDS: INSULIN SLIDING SCALE (NOVOLOG) 1 VIAL SQ SCH ×4 (07:32→21:42)
[2019-08-06 07:38] LABS: BASO % 0.2 % (0-2.0); HEMATOCRIT 34.5 % (35.4-49); HEMOGLOBIN 11.8 GM/dL (11.7-16.9); LYMPH % 7.8 % (8-40); MCH 30.4 pg (25.7-33.7); MCHC 34.1 g/dl (32.0-35.9); MEAN CELL VOLUME 89.1 fl (80-96); MEAN PLT VOLUME 9.2 fl (7.5-11.1); MONO % 5.5 % (3.8-10.2); NEUT % 86.5 % (42.8-82.8); PLATELET COUNT 190 K/MM3 (134-434); RBC 3.87 M/mm3 (4.00-5.60); RDW 13.6 % (11.9-15.9); WHITE BLOOD COUNT 8.1 K/mm3 (4.0-10.0)
[2019-08-06 08:18] LABS: ALBUMIN 2.6 g/dl (3.4-5.0); BILIRUBIN,TOTAL 0.6 mg/dL (0.2-1); BLOOD UREA NITROGEN 24.2 mg/dL (7-18); CALCIUM 8.7 mg/dL (8.5-10.1); CREATININE 1.2 mg/dL (0.55-1.3); MAGNESIUM 2.4 mg/dL (1.8-2.4); PHOSPHOROUS 3.1 mg/dL (2.5-4.9)
--- NOTE | 2019-08-06 08:57 | PN ---
Progress Note, Physician Chief Complaint: Feels better History of Present Illness: Extubated,eating ,no difficulty in breathing or swallowing - Current Medication List Current Medications: Active Medications Abacavir/Dolutegravir/Lamivudine (Triumeq (Non-Formulary)) 1 each PO DAILY [facility] Last Admin: 08/05/19 17:00 Dose: 1 each Acetaminophen (Tylenol -) 650 mg PO Q6H PRN PRN Reason: FEVER Last Admin: 08/02/19 02:03 Dose: 650 mg Chlorhexidine Gluconate (Peridex -) 15 ml MM BID THU Last Admin: 08/05/19 21:20 Dose: 15 ml Dexamethasone Sodium Phosphate (Decadron Injection -) 10 mg IVPUSH Q8H-IV THU Stop: 08/06/19 10:00 Last Admin: 08/06/19 02:48 Dose: 10 mg Heparin Sodium (Porcine) (Heparin -) 5,000 unit SQ TID THU Last Admin: 08/06/19 07:31 Dose: 5,000 unit Ceftriaxone Sodium 2 gm/ (Dextrose) 100 mls @ 100 mls/hr IVPB DAILY [facility]; Protocol Last Admin: 08/05/19 09:28 Dose: 100 mls/hr Metronidazole (Flagyl 500mg Premixed Ivpb -) 500 mg in 100 mls @ 100 mls/hr IVPB Q8H-IV THU Last Admin: 08/06/19 02:48 Dose: 100 mls/hr Insulin Aspart (Novolog Vial Sliding Scale -) 1 vial SQ ACHS [facility]; Protocol Last Admin: 08/06/19 07:32 Dose: 8 unit Insulin Detemir (Levemir Vial) 25 units SQ HS [facility] Losartan Potassium (Cozaar -) 50 mg PO DAILY [facility] Last Admin: 08/05/19 15:38 Dose: 50 mg - Objective Vital Signs: Vital Signs Temperature 98.3 F 08/06/19 06:00 Pulse Rate 64 08/06/19 06:00 Respiratory Rate 11 08/06/19 06:00 Blood Pressure 146/79 08/06/19 06:00 O2 Sat by Pulse Oximetry (%) 100 08/05/19 22:00 Constitutional: Yes: No Distress Eyes: Yes: WNL Neck: Yes: WNL Cardiovascular: Yes: WNL Respiratory: Yes: WNL Gastrointestinal: Yes: Normal Bowel Sounds ...Rectal Exam: Yes: Deferred Genitourinary: Yes: WNL Musculoskeletal: Yes: WNL Neurological: Yes: Alert Labs: CBC, BMP 08/06/19 05:53 08/06/19 05:53 INR, PTT INR 1.29 (0.83-1.09) H 08/02/19 10:00 Assessment/Plan transfer to regular floor
[2019-08-06] MEDS ORDERED: DEXTROSE 5%-WATER 100 ML IVPB ONE (09:00)
[2019-08-06] MEDS: LOSARTAN POTASSIUM 50 MG TABLET (FP) PO SCH (09:34)
[2019-08-06] MEDS: CEFTRIAXONE 2 GM in DEXTROSE 5%-WATER 100 ML IVPB SCH (09:34)
[2019-08-06] MEDS ORDERED: PT OWN MED DRAWER 7, Y5N ONE (09:44)
[2019-08-06] MEDS: CHLORHEXIDINE GLUCONATE 0.12% 15ML CUP MM SCH ×2 (09:46→21:42)
[2019-08-06] MEDS: ABACAVIR/DOLUTEGRAVIR/LAMIVUDI (TRIUMEQ) TABLET -NF PO SCH (10:18)
--- NOTE | 2019-08-06 11:12 | PN ---
Physical Exam: SUBJECTIVE: Patient seen and examined. Much improved compared to yesterday. Is oriented x3 today. Denies any sore throat, SOB, CP, pain while talking. He has been tolerating PO intake well. OBJECTIVE: Vital Signs Period Temp Pulse Resp BP Sys/Wheeler Pulse Ox Last 24 Hr 97.9 F-98.7 F 58-91 11-18 135-173/77-97 100-100 GENERAL: The patient is awake, alert, and fully oriented, in no acute distress. HEAD: Normal with no signs of trauma. EYES: PERRL, EOMI, no scleral icterus ENT: oropharynx clear without exudates, moist mucous membranes NECK: Trachea midline, full range of motion, supple. Resolving swelling, improved compared to yesterday. No stridor or carotid bruits auscultated LUNGS: Breath sounds equal, clear to auscultation bilaterally, no wheezes, no crackles, no accessory muscle use. HEART: Regular rate and rhythm, S1, S2 without murmur, rub or gallop. ABDOMEN: Soft, nontender, nondistended, normoactive bowel sounds, no guarding EXTREMITIES: 2+ pulses, warm, well-perfused, no edema. NEUROLOGICAL: Cranial nerves II through XII grossly intact. Normal speech, gait not observed. Laboratory Results - last 24 hr 08/05/19 08/05/19 08/05/19 11:59 15:56 21:17 WBC RBC Hgb Hct MCV MCH MCHC RDW Plt Count MPV Absolute Neuts (auto) Neutrophils % Lymphocytes % Monocytes % Eosinophils % Basophils % Nucleated RBC % Sodium Potassium Chloride Carbon Dioxide Anion Gap BUN Creatinine Est GFR (CKD-EPI)AfAm Est GFR (CKD-EPI)NonAf POC Glucometer 285 287 292 Random Glucose Calcium Phosphorus Magnesium Total Bilirubin AST ALT Alkaline Phosphatase Total Protein Albumin 08/06/19 08/06/19 08/06/19 05:53 05:53 06:21 WBC 8.1 RBC 3.87 L Hgb 11.8 Hct 34.5 L MCV 89.1 MCH 30.4 MCHC 34.1 RDW 13.6 Plt Count 190 MPV 9.2 Absolute Neuts (auto) 7.0 Neutrophils % 86.5 H Lymphocytes % 7.8 L D Monocytes % 5.5 D Eosinophils % 0.0 D Basophils % 0.2 Nucleated RBC % 0 Sodium 139 Potassium 4.0 Chloride 102 Carbon Dioxide 30 Anion Gap 6 L BUN 24.2 H Creatinine 1.2 Est GFR (CKD-EPI)AfAm 78.43 Est GFR (CKD-EPI)NonAf 67.67 POC Glucometer 321 Random Glucose 336 H Calcium 8.7 Phosphorus 3.1 Magnesium 2.4 Total Bilirubin 0.6 AST 18 ALT 27 Alkaline Phosphatase 57 Total Protein 6.0 L Albumin 2.6 L 08/06/19 11:07 WBC RBC Hgb Hct MCV MCH MCHC RDW Plt Count MPV Absolute Neuts (auto) Neutrophils % Lymphocytes % Monocytes % Eosinophils % Basophils % Nucleated RBC % Sodium Potassium Chloride Carbon Dioxide Anion Gap BUN Creatinine Est GFR (CKD-EPI)AfAm Est GFR (CKD-EPI)NonAf POC Glucometer 373 Random Glucose Calcium Phosphorus Magnesium Total Bilirubin AST ALT Alkaline Phosphatase Total Protein Albumin Active Medications Generic Name Dose Route Start Last Admin Trade Name Freq PRN Reason Stop Dose Admin Abacavir/Dolutegravir/Lamivudine 1 each 08/05/19 15:00 08/06/19 10:18 Triumeq (Non-Formulary) PO 1 each DAILY THU Administration Acetaminophen 650 mg 08/02/19 02:02 08/02/19 02:03 Tylenol - PO 650 mg Q6H PRN Administration FEVER Chlorhexidine Gluconate 15 ml 08/03/19 10:00 08/06/19 09:46 Peridex - MM 15 ml BID THU Administration Heparin Sodium (Porcine) 5,000 unit 08/04/19 14:00 08/06/19 07:31 Heparin - SQ 5,000 unit TID THU Administration Ceftriaxone Sodium 2 gm/ 100 mls @ 100 mls/hr 08/02/19 11:00 08/06/19 09:34 Dextrose IVPB 100 mls/hr DAILY THU Administration Protocol Metronidazole 500 mg in 100 mls @ 100 mls/hr 08/02/19 11:00 08/06/19 09:32 Flagyl 500mg Premixed Ivpb - IVPB 100 mls/hr Q8H-IV THU Administration Insulin Aspart 1 vial 08/02/19 23:00 08/06/19 11:08 Novolog Vial Sliding Scale - SQ 10 unit ACHS THU Administration Protocol Insulin Detemir 25 units 08/06/19 22:00 Levemir Vial SQ HS THU Losartan Potassium 50 mg 08/05/19 15:00 08/06/19 09:34 Cozaar - PO 50 mg DAILY THU Administration ASSESSMENT/PLAN: 54 y/o/m with PMH of DM, HIV (3m ago VL undetectable, CD > 400), DVT, PE eliquis , unstable angina, HTN, HLD. Presented to the ER for evaluation of warmth and swelling below his chin that started 3 days ago after sustaining a cut while shaving. Extubated on 08/05. #Neuro - Extubated on 08/05 - AAOx3, improved mental status. monitor #Cardio - Labetalol 10mg IV push x2 ordered - monitor BP - started on home Losartan dose #ENT - CT w/contrast: Increased B/L SQ edema, no abscess - CT neck w/o contrast: No abscess, sq edema seen B/L at ventral half of upper neck, submandibular glands slightly prominent B/L, possible sialoadenitis - Discontinue Decadron - Patient assessed by Dr. Bai. Recommended to continue present medical management, no need for surgical intervention needed at this time. Reconsult if worsens. Follow up outpatient #ID - Continue Ceftriaxone, Metronidazole, Vancomycin as per ID - Urine and Blood cx negative for growth - started home anti-HIV meds #GI - Cleared for PO intake s/p speech/swallow eval - No active issues #Respiratory - Extubated on 08/05 - Maintain spO2 >90% - CXR 08/06: no acute pathology #Endo - Novolog SS - BGM #DVT PE - Heparin - SCDs - Protonix #FEN - Diabetic/Sodium controlled diet #Disposition - Stable for transfer to med surg Visit type - Emergency Visit Emergency Visit: Yes ED Registration Date: 08/01/19 Care time: The patient presented to the Emergency Department on the above date and was hospitalized for further evaluation of their emergent condition. - New Patient This patient is new to me today: No - Critical Care Critical Care patient: Yes Total Critical Care Time (in minutes): 36 Critical Care Statement: The care of this patient involved high complexity decision making to prevent further life threatening deterioration of the patient 's condition and/or to evaluate & treat vital organ system(s) failure or risk of failure. ATTENDING PHYSICIAN STATEMENT I saw and evaluated the patient. I reviewed the resident's note and discussed the case with the resident. I agree with the resident's findings and plan as documented. SUBJECTIVE: OBJECTIVE: ASSESSMENT AND PLAN:
--- NOTE | 2019-08-06 11:25 | PN ---
Teaching Attending Note Name of Resident: Lexi Emanuel ATTENDING PHYSICIAN STATEMENT I saw and evaluated the patient. I reviewed the resident's note and discussed the case with the resident. I agree with the resident's findings and plan as documented. SUBJECTIVE: Patient seen and examined in the ICU. Remains extubated. Much more awake, alert, and oriented. Mild dry cough. Intake & Output 08/03/19 08/04/19 08/05/19 08/06/19 23:59 23:59 23:59 23:59 Intake Total 4293 4937 5238 1640 Output Total 2200 1600 4000 750 Balance 2093 3337 1238 890 Weight 201 lb 205 lb 11.2 oz Last Vital Signs Temp Pulse Resp BP Pulse Ox 98.4 F 64 18 159/83 100 08/06/19 10:00 08/06/19 10:00 08/06/19 10:00 08/06/19 10:00 08/06/19 09:00 Active Medications Abacavir/Dolutegravir/Lamivudine (Triumeq (Non-Formulary)) 1 each PO DAILY [facility] Last Admin: 08/06/19 10:18 Dose: 1 each Acetaminophen (Tylenol -) 650 mg PO Q6H PRN PRN Reason: FEVER Last Admin: 08/02/19 02:03 Dose: 650 mg Chlorhexidine Gluconate (Peridex -) 15 ml MM BID THU Last Admin: 08/06/19 09:46 Dose: 15 ml Heparin Sodium (Porcine) (Heparin -) 5,000 unit SQ TID THU Last Admin: 08/06/19 07:31 Dose: 5,000 unit Ceftriaxone Sodium 2 gm/ (Dextrose) 100 mls @ 100 mls/hr IVPB DAILY [facility]; Protocol Last Admin: 08/06/19 09:34 Dose: 100 mls/hr Metronidazole (Flagyl 500mg Premixed Ivpb -) 500 mg in 100 mls @ 100 mls/hr IVPB Q8H-IV [facility]U Last Admin: 08/06/19 09:32 Dose: 100 mls/hr Insulin Aspart (Novolog Vial Sliding Scale -) 1 vial SQ ACHS [facility]; Protocol Last Admin: 08/06/19 11:08 Dose: 10 unit Insulin Detemir (Levemir Vial) 25 units SQ HS [facility]U Losartan Potassium (Cozaar -) 50 mg PO DAILY [facility]U Last Admin: 08/06/19 09:34 Dose: 50 mg Gen: Extubated, awake and alert Chest/Neck: improving erythema Heart: RRR Lung: decreased breath sounds at the bases Abd: soft, nontender Ext: no edema Laboratory Results - last 24 hr 08/05/19 08/05/19 08/05/19 11:59 15:56 21:17 WBC RBC Hgb Hct MCV MCH MCHC RDW Plt Count MPV Absolute Neuts (auto) Neutrophils % Lymphocytes % Monocytes % Eosinophils % Basophils % Nucleated RBC % Sodium Potassium Chloride Carbon Dioxide Anion Gap BUN Creatinine Est GFR (CKD-EPI)AfAm Est GFR (CKD-EPI)NonAf POC Glucometer 285 287 292 Random Glucose Calcium Phosphorus Magnesium Total Bilirubin AST ALT Alkaline Phosphatase Total Protein Albumin 08/06/19 08/06/19 08/06/19 05:53 05:53 06:21 WBC 8.1 RBC 3.87 L Hgb 11.8 Hct 34.5 L MCV 89.1 MCH 30.4 MCHC 34.1 RDW 13.6 Plt Count 190 MPV 9.2 Absolute Neuts (auto) 7.0 Neutrophils % 86.5 H Lymphocytes % 7.8 L D Monocytes % 5.5 D Eosinophils % 0.0 D Basophils % 0.2 Nucleated RBC % 0 Sodium 139 Potassium 4.0 Chloride 102 Carbon Dioxide 30 Anion Gap 6 L BUN 24.2 H Creatinine 1.2 Est GFR (CKD-EPI)AfAm 78.43 Est GFR (CKD-EPI)NonAf 67.67 POC Glucometer 321 Random Glucose 336 H Calcium 8.7 Phosphorus 3.1 Magnesium 2.4 Total Bilirubin 0.6 AST 18 ALT 27 Alkaline Phosphatase 57 Total Protein 6.0 L Albumin 2.6 L 08/06/19 11:07 WBC RBC Hgb Hct MCV MCH MCHC RDW Plt Count MPV Absolute Neuts (auto) Neutrophils % Lymphocytes % Monocytes % Eosinophils % Basophils % Nucleated RBC % Sodium Potassium Chloride Carbon Dioxide Anion Gap BUN Creatinine Est GFR (CKD-EPI)AfAm Est GFR (CKD-EPI)NonAf POC Glucometer 373 Random Glucose Calcium Phosphorus Magnesium Total Bilirubin AST ALT Alkaline Phosphatase Total Protein Albumin ASSESSMENT AND PLAN: Acute Respiratory Failure Chest/Neck Cellulitis HIV h/o PE/DVT HTN Hyperlipidemia DM - NC O2 as needed - continue antibiotics per ID - Monitor off systemic steroids - glucose control - DVT/GI prophylaxis - Floor Dr Live
--- NOTE | 2019-08-06 11:36 | PN ---
Progress Note, Physician History of Present Illness: AWAKE AND ALERT REMAINS EXTUBATED AFEBRILE NECK SWELLING MUCH IMPROVED ERYTHEMA AT BASE OF NECK NEARLY RESOLVED CT NO EVIDENCE OF ABSCESS OR JUGULAR VEIN THROMBOSIS - Current Medication List Current Medications: Active Medications Abacavir/Dolutegravir/Lamivudine (Triumeq (Non-Formulary)) 1 each PO DAILY [facility] Last Admin: 08/06/19 10:18 Dose: 1 each Acetaminophen (Tylenol -) 650 mg PO Q6H PRN PRN Reason: FEVER Last Admin: 08/02/19 02:03 Dose: 650 mg Chlorhexidine Gluconate (Peridex -) 15 ml MM BID THU Last Admin: 08/06/19 09:46 Dose: 15 ml Heparin Sodium (Porcine) (Heparin -) 5,000 unit SQ TID THU Last Admin: 08/06/19 07:31 Dose: 5,000 unit Ceftriaxone Sodium 2 gm/ (Dextrose) 100 mls @ 100 mls/hr IVPB DAILY [facility]; Protocol Last Admin: 08/06/19 09:34 Dose: 100 mls/hr Metronidazole (Flagyl 500mg Premixed Ivpb -) 500 mg in 100 mls @ 100 mls/hr IVPB Q8H-IV THU Last Admin: 08/06/19 09:32 Dose: 100 mls/hr Insulin Aspart (Novolog Vial Sliding Scale -) 1 vial SQ ACHS [facility]; Protocol Last Admin: 08/06/19 11:08 Dose: 10 unit Insulin Detemir (Levemir Vial) 25 units SQ HS [facility] Losartan Potassium (Cozaar -) 50 mg PO DAILY [facility]U Last Admin: 08/06/19 09:34 Dose: 50 mg - Objective Vital Signs: Vital Signs Temperature 98.4 F 08/06/19 10:00 Pulse Rate 64 08/06/19 10:00 Respiratory Rate 18 08/06/19 10:00 Blood Pressure 159/83 08/06/19 10:00 O2 Sat by Pulse Oximetry (%) 100 08/06/19 09:00 Constitutional: Yes: No Distress Eyes: Yes: Conjunctiva Clear Neck: Yes: Other (NECK SWELLING MUCH IMPROVED; ERYTHEMA NEARLY ALL RESOLVED) Cardiovascular: Yes: Regular Rate and Rhythm, S1, S2 Respiratory: Yes: CTA Bilaterally Gastrointestinal: Yes: Normal Bowel Sounds, Soft Edema: No Labs: CBC, BMP 08/06/19 05:53 08/06/19 05:53 INR, PTT INR 1.29 (0.83-1.09) H 08/02/19 10:00 Assessment/Plan RESP FAILURE S/P EXTUBATION CELLULITIS NECK / CHEST IMPROVED IDDM HIV+ CONTINUE EMPIRIC ANTIBIOTICS
[2019-08-06] MEDS ORDERED: LABETALOL HCL 5 MG/1 ML (100MG/20 ML VIAL) IVPUSH ONE (12:12)
--- NOTE | 2019-08-06 13:18 | PN ---
Progress Note (short form) - Note Progress Note: ENT Extubated, feels well P/Sitting up in bed, breathing comfortably, no stridor, in NAD Neck swelling is moderate in the submental region OC/OP clear Imp: resolving cervical cellulitis Continue abx, which can be changed to po eventually, with outpatient ENT follow up once he is discharged
--- NOTE | 2019-08-06 14:38 | PN ---
Progress Note, TRACTOR TECHNICIAN - Note Progress Note: Selected Entries 08/05/19 08/05/19 08/05/19 02:50 06:00 10:00 Breakfast Supper Temperature 98.4 F 98.4 F 98.6 F 08/05/19 08/05/19 08/05/19 15:00 18:11 22:00 Breakfast Supper Temperature 98.4 F 97.9 F 98.7 F 08/05/19 08/06/19 08/06/19 22:56 06:00 10:00 Breakfast 100% Supper 50% Temperature 98.3 F 98.4 F 08/06/19 12:00 Breakfast Supper Temperature 98.2 F Laboratory Tests 08/05/19 08/06/19 05:40 05:53 WBC 6.1 8.1 Tolerating diet. More alert, verbal. Smiling. Good Eye contact. Auditory processing deficits? what year is it-"Nov" "22" Baseline? Follows 2 stage commands but quite impulsive in responding.
[2019-08-06] MEDS ORDERED: INSULIN (LEVEMIR) 100 UNITS/ML UNITS SQ SCH (22:00)
[2019-08-07] MEDS: HEPARIN NA (PORCINE) 5,000 UNITS/ML 1ML VIAL SQ SCH (06:24)
[2019-08-07] MEDS ORDERED: LOSARTAN POTASSIUM 50 MG TABLET (FP) PO ONE (06:34)
[2019-08-07 07:18] LABS: HEMATOCRIT 38.5 % (35.4-49); HEMOGLOBIN 13.2 GM/dL (11.7-16.9); MCH 30.5 pg (25.7-33.7); MCHC 34.4 g/dl (32.0-35.9); MEAN CELL VOLUME 88.6 fl (80-96); MEAN PLT VOLUME 8.8 fl (7.5-11.1); PLATELET COUNT 199 K/MM3 (134-434); RBC 4.34 M/mm3 (4.00-5.60); RDW 13.7 % (11.9-15.9); WHITE BLOOD COUNT 8.8 K/mm3 (4.0-10.0)
--- NOTE | 2019-08-07 07:51 | PN ---
Physical Exam: SUBJECTIVE: Patient seen and examined. Patient returned to baseline, AOx3. Denies any sore throat, SOB, CP, pain while talking; tolerating full diet w/out difficulty. OBJECTIVE: Vital Signs Period Temp Pulse Resp BP Sys/Wheeler Pulse Ox Last 24 Hr 98.2 F-98.6 F 50-82 11-18 146-181/74-94 100-100 GENERAL: The patient is awake, alert, and fully oriented, in no acute distress. HEAD: Normal with no signs of trauma. EYES: PERRL, extraocular movements intact, sclera anicteric, conjunctiva clear. No ptosis. ENT: +Minimal residual swelling appreciated to external throat. Ears normal, nares patent, oropharynx clear without exudates, moist mucous membranes. NECK: Trachea midline, full range of motion, supple. LUNGS: Breath sounds equal, clear to auscultation bilaterally, no wheezes, no crackles, no accessory muscle use. HEART: Regular rate and rhythm, S1, S2 without murmur, rub or gallop. ABDOMEN: Soft, nontender, nondistended, normoactive bowel sounds, no guarding, no rebound, no hepatosplenomegaly, no masses. EXTREMITIES: 2+ pulses, warm, well-perfused, no edema. NEUROLOGICAL: Cranial nerves II through XII grossly intact. Normal speech, gait not observed. PSYCH: Normal mood, normal affect. SKIN: Warm, dry, normal turgor, no rashes or lesions noted Laboratory Results - last 24 hr 08/06/19 08/06/19 08/06/19 05:53 05:53 11:07 WBC 8.1 RBC 3.87 L Hgb 11.8 Hct 34.5 L MCV 89.1 MCH 30.4 MCHC 34.1 RDW 13.6 Plt Count 190 MPV 9.2 Absolute Neuts (auto) 7.0 Neutrophils % 86.5 H Lymphocytes % 7.8 L D Monocytes % 5.5 D Eosinophils % 0.0 D Basophils % 0.2 Nucleated RBC % 0 Sodium 139 Potassium 4.0 Chloride 102 Carbon Dioxide 30 Anion Gap 6 L BUN 24.2 H Creatinine 1.2 Est GFR (CKD-EPI)AfAm 78.43 Est GFR (CKD-EPI)NonAf 67.67 POC Glucometer 373 Random Glucose 336 H Calcium 8.7 Phosphorus 3.1 Magnesium 2.4 Total Bilirubin 0.6 AST 18 ALT 27 Alkaline Phosphatase 57 Total Protein 6.0 L Albumin 2.6 L 08/06/19 08/06/19 08/07/19 15:55 21:39 06:35 WBC 8.8 RBC 4.34 Hgb 13.2 Hct 38.5 MCV 88.6 MCH 30.5 MCHC 34.4 RDW 13.7 Plt Count 199 MPV 8.8 Absolute Neuts (auto) Neutrophils % Lymphocytes % Monocytes % Eosinophils % Basophils % Nucleated RBC % Sodium Potassium Chloride Carbon Dioxide Anion Gap BUN Creatinine Est GFR (CKD-EPI)AfAm Est GFR (CKD-EPI)NonAf POC Glucometer 316 300 Random Glucose Calcium Phosphorus Magnesium Total Bilirubin AST ALT Alkaline Phosphatase Total Protein Albumin Active Medications Generic Name Dose Route Start Last Admin Trade Name Freq PRN Reason Stop Dose Admin Abacavir/Dolutegravir/Lamivudine 1 each 08/05/19 15:00 08/06/19 10:18 Triumeq (Non-Formulary) PO 1 each DAILY THU Administration Acetaminophen 650 mg 08/02/19 02:02 08/02/19 02:03 Tylenol - PO 650 mg Q6H PRN Administration FEVER Chlorhexidine Gluconate 15 ml 08/03/19 10:00 08/06/19 21:42 Peridex - MM Not Given BID THU Heparin Sodium (Porcine) 5,000 unit 08/04/19 14:00 08/07/19 06:24 Heparin - SQ 5,000 unit TID THU Administration Ceftriaxone Sodium 2 gm/ 100 mls @ 100 mls/hr 08/02/19 11:00 08/06/19 09:34 Dextrose IVPB 100 mls/hr DAILY [facility] Administration Protocol Metronidazole 500 mg in 100 mls @ 100 mls/hr 08/02/19 11:00 08/07/19 02:34 Flagyl 500mg Premixed Ivpb - IVPB 100 mls/hr Q8H-IV THU Administration Insulin Aspart 1 vial 08/02/19 23:00 08/06/19 21:42 Novolog Vial Sliding Scale - SQ 6 unit ACHS THU Administration Protocol Insulin Detemir 25 units 08/06/19 22:00 08/06/19 21:42 Levemir Vial SQ 25 units HS THU Administration Losartan Potassium 50 mg 08/05/19 15:00 08/06/19 09:34 Cozaar - PO 50 mg DAILY THU Administration ASSESSMENT/PLAN: Mr. Leone is a 54 yo male with PMH of DM, well controlled HIV, DVT, PE, unstable angina, HTN, HLD. Presented to the ER for evaluation of warmth and swelling below his chin that started 3 days ago after sustaining a cut while shaving. Extubated on 08/05; up for transfer as of 08/06. #Neuro - Extubated on 08/05 - AAOx3, mental status normal. #Cardio - Labetalol 10mg IV push x2 ordered - monitor BP - home Losartan #ENT - Steroids discontinued - ENT will follow up outpatient #ID - Continue ABX as per ID - started home anti-HIV meds #GI - Normal diet - No active issues #Respiratory - Extubated on 08/05 - Maintain spO2 >90% #Endo - Novolog SS - BGM #DVT PE - Heparin - SCDs - Protonix #FEN - Diabetic/Sodium controlled diet #Disposition - Stable for transfer Visit type - Emergency Visit Emergency Visit: Yes ED Registration Date: 08/01/19 Care time: The patient presented to the Emergency Department on the above date and was hospitalized for further evaluation of their emergent condition. - New Patient This patient is new to me today: No - Critical Care Critical Care patient: Yes Total Critical Care Time (in minutes): 31 Critical Care Statement: The care of this patient involved high complexity decision making to prevent further life threatening deterioration of the patient 's condition and/or to evaluate & treat vital organ system(s) failure or risk of failure. ATTENDING PHYSICIAN STATEMENT I saw and evaluated the patient. I reviewed the resident's note and discussed the case with the resident. I agree with the resident's findings and plan as documented. SUBJECTIVE: OBJECTIVE: ASSESSMENT AND PLAN:
[2019-08-07 07:52] LABS: BLOOD UREA NITROGEN 24.2 mg/dL (7-18); CALCIUM 9.2 mg/dL (8.5-10.1); CREATININE 1.3 mg/dL (0.55-1.3); MAGNESIUM 2.3 mg/dL (1.8-2.4); PHOSPHOROUS 3.2 mg/dL (2.5-4.9); POTASSIUM 3.4 mmol/L (3.5-5.1)
[2019-08-07] MEDS: INSULIN SLIDING SCALE (NOVOLOG) 1 VIAL SQ SCH ×2 (08:22→12:19)
[2019-08-07] MEDS ORDERED: PT OWN MED DRAWER 7, Y5N ONE (08:33)
[2019-08-07] MEDS ORDERED: DEXTROSE 5%-WATER 100 ML IVPB ONE (08:34)
[2019-08-07] MEDS: LOSARTAN POTASSIUM 50 MG TABLET (FP) PO SCH (09:17)
[2019-08-07] MEDS: CEFTRIAXONE 2 GM in DEXTROSE 5%-WATER 100 ML IVPB SCH (09:18)
[2019-08-07] MEDS: ABACAVIR/DOLUTEGRAVIR/LAMIVUDI (TRIUMEQ) TABLET -NF PO SCH (09:18)
--- NOTE | 2019-08-07 09:54 | PN ---
Teaching Attending Note Name of Resident: Humza Figueroa ATTENDING PHYSICIAN STATEMENT I saw and evaluated the patient. I reviewed the resident's note and discussed the case with the resident. I agree with the resident's findings and plan as documented. SUBJECTIVE: Pt seen and examined in the ICU. Denies shortness of breath. No fevers recorded. No dysphagia. OBJECTIVE: Vital Signs Period Temp Pulse Resp BP Sys/Wheeler Pulse Ox Last 24 Hr 98.2 F-98.6 F 50-82 12-18 146-181/74-94 98-100 Intake & Output 08/04/19 08/05/19 08/06/19 08/07/19 23:59 23:59 23:59 23:59 Intake Total 4937 5238 3290 600 Output Total 1600 4000 2350 Balance 3337 1238 940 600 Weight 93.304 kg 94.801 kg Gen: NAD at rest Heart: RRR Lung: decreased breath sounds at the bases Abd: soft, nontender Ext: no edema CBC, BMP 08/07/19 06:35 08/07/19 06:35 Active Medications Abacavir/Dolutegravir/Lamivudine (Triumeq (Non-Formulary)) 1 each PO DAILY THU Last Admin: 08/07/19 09:18 Dose: 1 each Acetaminophen (Tylenol -) 650 mg PO Q6H PRN PRN Reason: FEVER Last Admin: 08/02/19 02:03 Dose: 650 mg Heparin Sodium (Porcine) (Heparin -) 5,000 unit SQ TID THU Last Admin: 08/07/19 06:24 Dose: 5,000 unit Ceftriaxone Sodium 2 gm/ (Dextrose) 100 mls @ 100 mls/hr IVPB DAILY THU; Protocol Last Admin: 08/07/19 09:18 Dose: 100 mls/hr Metronidazole (Flagyl 500mg Premixed Ivpb -) 500 mg in 100 mls @ 100 mls/hr IVPB Q8H-IV THU Last Admin: 08/07/19 09:17 Dose: 100 mls/hr Insulin Aspart (Novolog Vial Sliding Scale -) 1 vial SQ ACHS THU; Protocol Last Admin: 08/07/19 08:22 Dose: 2 unit Insulin Detemir (Levemir Vial) 25 units SQ HS THU Last Admin: 08/06/19 21:42 Dose: 25 units Losartan Potassium (Cozaar -) 50 mg PO DAILY [facility] Last Admin: 08/07/19 09:17 Dose: 50 mg ASSESSMENT AND PLAN: s/p Acute Respiratory Failure Chest/Neck Cellulitis HIV h/o PE/DVT HTN Hyperlipidemia DM - continue antibiotics, can likely change to PO - PO as tolerated - DVT/GI prophylaxis - can monitor on floor or d/c home
[2019-08-07 10:18] VITALS: TEMP 98.2
--- NOTE | 2019-08-07 11:12 | PN ---
Progress Note, Physician History of Present Illness: AWAKE AND ALERT REMAINS EXTUBATED AFEBRILE NO C/O NECK PAIN OR BREATHING DIFFICULTY NECK SWELLING MUCH IMPROVED ERYTHEMA AT BASE OF NECK RESOLVED CT NO EVIDENCE OF ABSCESS OR JUGULAR VEIN THROMBOSIS - Current Medication List Current Medications: Active Medications Abacavir/Dolutegravir/Lamivudine (Triumeq (Non-Formulary)) 1 each PO DAILY THU Last Admin: 08/07/19 09:18 Dose: 1 each Acetaminophen (Tylenol -) 650 mg PO Q6H PRN PRN Reason: FEVER Last Admin: 08/02/19 02:03 Dose: 650 mg Heparin Sodium (Porcine) (Heparin -) 5,000 unit SQ TID THU Last Admin: 08/07/19 06:24 Dose: 5,000 unit Ceftriaxone Sodium 2 gm/ (Dextrose) 100 mls @ 100 mls/hr IVPB DAILY THU; Protocol Last Admin: 08/07/19 09:18 Dose: 100 mls/hr Metronidazole (Flagyl 500mg Premixed Ivpb -) 500 mg in 100 mls @ 100 mls/hr IVPB Q8H-IV THU Last Admin: 08/07/19 09:17 Dose: 100 mls/hr Insulin Aspart (Novolog Vial Sliding Scale -) 1 vial SQ ACHS THU; Protocol Last Admin: 08/07/19 08:22 Dose: 2 unit Insulin Detemir (Levemir Vial) 25 units SQ HS THU Last Admin: 08/06/19 21:42 Dose: 25 units Losartan Potassium (Cozaar -) 50 mg PO DAILY THU Last Admin: 08/07/19 09:17 Dose: 50 mg - Objective Vital Signs: Vital Signs Temperature 98.2 F 08/07/19 10:00 Pulse Rate 48 L 08/07/19 10:00 Respiratory Rate 12 08/07/19 10:00 Blood Pressure 141/76 08/07/19 10:00 O2 Sat by Pulse Oximetry (%) 98 08/07/19 09:00 Constitutional: Yes: No Distress Eyes: Yes: Conjunctiva Clear HENT: Yes: Other (NECK SWELLING AND ERYTHEMA RESOLVED + INDURATION, SUBMANDIBULAR AREA NO TENDERNESS OR FLUCTUANCE) Cardiovascular: Yes: Regular Rate and Rhythm, S1, S2 Respiratory: Yes: CTA Bilaterally Gastrointestinal: Yes: Normal Bowel Sounds, Soft. No: Tenderness Edema: No Labs: CBC, BMP 08/07/19 06:35 08/07/19 06:35 INR, PTT INR 1.29 (0.83-1.09) H 08/02/19 10:00 Assessment/Plan RESP FAILURE S/P EXTUBATION CELLULITIS NECK / CHEST IMPROVED IDDM HIV+ SUBSTITUTE AUGMENTIN 875MG PO BID X 7D
[2019-08-07 12:13] VITALS: BP 160/80; PULSE 61
--- NOTE | 2019-08-07 14:09 | DS ---
Physical Examination Vital Signs: Vital Signs Temperature 98.2 F 08/07/19 10:00 Pulse Rate 61 08/07/19 12:00 Respiratory Rate 14 08/07/19 12:00 Blood Pressure 160/80 08/07/19 12:00 O2 Sat by Pulse Oximetry (%) 98 08/07/19 09:00 Findings/Remarks: Admitted with cellulitis left side of neck Had developed respiratory distress,was intubated and was on respirator Extubated 2 days ago,doing well DC home 0n PO antibiotics Constitutional: Yes: No Distress Eyes: Yes: WNL HENT: Yes: WNL Neck: Yes: WNL Cardiovascular: Yes: WNL Respiratory: Yes: WNL ...Rectal Exam: Yes: WNL Renal/: Yes: WNL Edema: No Neurological: Yes: Alert ...Motor Strength: WNL Psychiatric: Yes: Alert Labs: CBC, BMP 08/07/19 06:35 08/07/19 06:35 Discharge Summary Problems reviewed: Yes Reason For Visit: CELLULITIS,HYPERGLYCEMIA WITH KETOSIS Current Active Problems Cellulitis (Acute) Chronic kidney disease (Acute) Hyperglycemia without ketosis (Acute) [place] angina (Acute) Condition: Fair - Instructions - Home Medications Comprehensive Discharge Medication List: Ambulatory Orders Apixaban [Eliquis -] 10 mg PO BID #0 tablet 03/29/16 Insulin (Levemir) [Levemir Vial] 25 units SQ HS 09/20/18 Losartan Potassium [Cozaar -] 50 mg PO DAILY 09/20/18 metFORMIN HCL [Metformin HCl ER] 1,000 mg PO DAILY 09/20/18 Abacavir/Dolutegravir/Lamivudi [Triumeq Tablet] 1 each PO DAILY 11/30/18 Atorvastatin Ca [Lipitor] 10 mg PO HS 08/02/19
== END 2019-08-07 14:29 | disposition home or self-care (01) | DRG 208 ==
LOC: JER 17:36 → JERBED 23:14 → JICU 08-02 14:14
PROVIDERS: ADMIT Internal Medicine; ATTEND Internal Medicine
PROC: 0BH17EZ Insertion of Endotracheal Airway into Trachea, Via Natural or Artificial Opening (ICD-10-PCS; principal; 2019-08-02)
PROC: 5A1945Z Respiratory Ventilation, 24-96 Consecutive Hours (ICD-10-PCS; 2019-08-02)
DX: J96.00 Acute respiratory failure, unspecified whether with hypoxia or hypercapnia (principal); L03.221 Cellulitis of neck; K12.2 Cellulitis and abscess of mouth; Z21 Asymptomatic human immunodeficiency virus [HIV] infection status; I10 Essential (primary) hypertension; E78.5 Hyperlipidemia, unspecified; E66.9 Obesity, unspecified; Z68.30 Body mass index [BMI] 30.0-30.9, adult; E11.65 Type 2 diabetes mellitus with hyperglycemia; Z86.711 Personal history of pulmonary embolism; Z86.718 Personal history of other venous thrombosis and embolism
CPT/HCPCS: 36415; 70491-TC; 71045-TC-FY; 71046-TC-FY; 80048; 80053; 81003; 82962; 83735; 84100; 85025; 85027; 85610; 86850; 86900; 86901; 87040; 87086; 93005; 93010; 94002; 99285-25; J0131; J1100; J1644; J7030